=== PATIENT | male | born 1945 | race Caucasian/White ===

== ENCOUNTER 2019-02-16 11:47 | Inpatient (IN) ==
[2019-02-16] MEDS ORDERED: NS 1,000 ML IV ONE ×4 (11:54→16:45)
[2019-02-16] MEDS ORDERED: ROCEPHIN 1 GM in NS 50 ML IV ONE (11:55)
[2019-02-16 11:58] LABS: BLOOD TYPE ARTERIAL; HCO3-(ACT) 31.8 mmoll (20.0-26.0); METHB 1.3 % (0.0-1.5); O2(CT) 19.7 mL/dL (15.0-23.0); O2HB 94.2 % (95.0-99.0); PO2(98.6) 137 mmHg (60-100); SAMPLE BLOOD; SAO2 99.7 % (95.0-100.0); THB 14.7 g/dL (11.5-17.4)
[2019-02-16 12:14] LABS: HEMATOCRIT 46.1 % (42.0-52.0); HEMOGLOBIN 13.8 g/dL (14.0-18.0); RBC 4.77 XMIL (4.7-6.1); WBC 13.38 X1000 (4.8-10.8)
[2019-02-16 12:15] LABS: BASO# 0.01 X1000 (0.0-0.2); BASO% 0.1 % (0.0-0.8); IMM GRAN# 0.02 X1000 (0.0-0.04); IMM GRAN% 0.1 % (0.0-0.5); LYMPH# 0.21 X1000 (1.2-3.4); LYMPH% 1.6 % (20.5-51.1); MCH 28.9 PG (27-31); MCHC 29.9 g/dL (33-37); MCV 96.6 FL (81-99); MONO# 1.03 X1000 (0.11-0.59); MONO% 7.7 % (1.7-9.3); MPV 10.5 FL (7.4-10.4); NEUT# 12.11 X1000 (1.4-6.5); NEUT% 90.5 % (42.2-75.2); PLT 297 X1000 (130-400); RDW 14.7 % (11.5-14.5)
--- NOTE | 2019-02-16 12:16 | Diag Imaging Result Doc PS360 ---
EXAM: CHEST-PORTABLE 02/16/2019 HISTORY: SOB TECHNIQUE: Erect AP portable at 1212 COMMENT: There is a right pleural effusion which is slightly larger than on 09/03/2018. There is increased opacity generally in the right lower lung and midlung compared to the previous study. There is also some increased activity in the mid lung field on the left. The heart size and pulmonary vascularity are within normal limits. IMPRESSION: Bronchopneumonia with right pleural effusion. Electronically signed by Mahendra High 02/16/2019 12:14 PM
[2019-02-16] MEDS ORDERED: DUONEB (A & A) INH ONE (12:20)
[2019-02-16 12:30] LABS: ALLEN TEST YES; MODALITY COOL AEROSOL
[2019-02-16 12:31] LABS: PCO2(98.6) 140 mmHg (35-45); pH(98.6) 7.11 (7.35-7.45)
--- NOTE | 2019-02-16 12:49 | EKG Report ---
Test Performed on : 02/16/2019 11:51:45 AM Test Reason : AMS Blood Pressure : / mmHG Vent. Rate : 115 BPM Atrial Rate : 115 BPM P-R Int : 128 ms QRS Dur : 094 ms QT Int : 312 ms P-R-T Axes : 088 088 037 degrees QTc Int : [address] elevation, consider inferolateral injury or acute infarct ACUTE OH / STEMI Abnormal ECG When compared with ECG of 28-JAN-2014 08:20, Non-specific change in ST segment in Inferior leads Unconfirmed Result
--- NOTE | 2019-02-16 12:50 | EKG Report ---
Test Performed on : 02/16/2019 11:53:23 AM Test Reason : REPEAT ARTIFACT LAST EKG Blood Pressure : / mmHG Vent. Rate : 115 BPM Atrial Rate : 115 BPM P-R Int : 142 ms QRS Dur : 094 ms QT Int : 286 ms P-R-T Axes : 084 094 069 degrees QTc Int : 395 ms Sinus tachycardia. Rightward axis Pulmonary disease pattern Abnormal ECG When compared with ECG of 16-FEB-2019 11:51, (Unconfirmed) ST no longer elevated in Lateral leads Unconfirmed Result
[2019-02-16 12:52] LABS: INR 0.88; PROTIME 12.4 Seconds (11.0-16.0); PTT 30.3 Seconds (22.3-41.8)
[2019-02-16] MEDS ORDERED: LEVAQUIN 500 MG/D5W 500 MG/100 ML IVPB IV ONE (12:57)
[2019-02-16 13:18] LABS: LYMPHS 7 % (21-51); MONO 1 % (1-9); SEGS 92 % (42-75)
[2019-02-16 13:43] LABS: BE 4.8 mmoll (-3.0-3.0); BLOOD TYPE ARTERIAL; HCO3-(ACT) 28.5 mmoll (20.0-26.0); METHB 1.4 % (0.0-1.5); O2(CT) 17.1 mL/dL (15.0-23.0); PO2(98.6) 63 mmHg (60-100); SAMPLE BLOOD; SAO2 94.2 % (95.0-100.0); SRATE 25 BPM; THB 13.6 g/dL (11.5-17.4)
[2019-02-16 13:46] LABS: ALLEN TEST YES; MODALITY BI PAP; pH(98.6) 7.14 (7.35-7.45)
[2019-02-16 13:47] LABS: O2HB 89.2 % (95.0-99.0); PCO2(98.6) 111 mmHg (35-45)
[2019-02-16 13:56] LABS: AGAP 11; ALBUMIN 2.9 g/dL (3.5-5.0); ALKALINE PHOSPHATASE 81 U/L (32-122); BUN 37 mg/dL (8-22); CHLORIDE 98 mmol/L (98-107); CK PROFILE 40 U/L (24-204); COSMO 292; CREATININE 1.2 mg/dL (0.7-1.2); ESTIMATED GFR 59; GLUCOSE 143 mg/dL (70-104); GOT 14 U/L (10-34); GPT 7 U/L (10-44); POTASSIUM 5.2 mmol/L (3.5-5.1); SODIUM 141 mmol/L (136-145); TCO2 32 mmol/L (25-35); TOTAL BILIRUBIN < 0.15 mg/dL (0.20-1.00); TOTAL PROTEIN 6.1 g/dL (6.3-8.3)
--- NOTE | 2019-02-16 16:21 | PROVIDER DOCUMENTATION ---
This chart was entered by Chuck Brandon Scribe, acting as scribe for Luis A Calzada MD. HPI-General Adult - General Chief Complaint: Shortness of Breath Stated Complaint: AMS Time Seen by Provider: 02/16/19 11:49 Source: patient, EMS Unable to obtain history due to:: altered Allergies/Adverse Reactions: Patient Allergies Allergy/AdvReac Type Severity Reaction Status Date / Time iodine Allergy ANAPHYLAXIS Verified 01/28/14 08:58 Home Medications: Home Medication List Medication Instructions Recorded Confirmed Last Taken Type Gabapentin [Neurontin] 1,200 mg PO DAILY 01/28/14 01/28/14 01/27/14 08:00 History Metoprolol Succinate E.r. [Toprol 50 mg PO DAILY 01/28/14 01/28/14 01/27/14 09:00 History Xl] Cyanocobalamin [Vitamin B-12] 500 microgm PO DAILY #0 tablet 02/07/14 Unknown Rx Folic Acid 1 mg PO DAILY #0 tablet 02/07/14 Unknown Rx Lactobacillus Rhamnosus GG 1 each PO BID #0 capsule 02/07/14 Unknown Rx [Culturelle] Loperamide [Imodium] 2 mg PO Q6H PRN #0 capsule 02/07/14 Unknown Rx Nicotine Patch [Nicoderm Patch] 21 mg TD DAILY #0 patch.[id number] 02/07/14 Unknown Rx Thiamine [Vitamin B-1] 100 mg PO DAILY #0 tablet 02/07/14 Unknown Rx - History of Present Illness -Gen Adult Nature of Presenting Problems: 73 yom presents to the ed v/a EMS. EMS stated "pt hasn't been acting right for a week, pt has been leaning to right of his chair for a week stated to ems by family" pt "hasn't been breathing good all week" pt has bad bilateral legs PAD and has hx of COPD Onset/Duration: reports: 1 week ago ("stated not acting right by ems") Timing: reports: still present Review of Systems - Adult - REVIEW OF SYSTEMS - ADULT ROS:: unobtainable per condition Constitutional: reports: fatique, weight loss Eyes: reports: no symptoms reported Ears, Nose, Mouth & Throat: reports: no symptoms reported Cardiovascular: reports: no symptoms reported Respiratory: reports: chronic cough, cough, dyspnea on exertion, excessive sputum production, shortness of breath Gastrointestinal: reports: no symptoms reported Genitourinary: reports: no symptoms reported Musculoskeletal: reports: no symptoms reported Integumentary: reports: rash Neurological: reports: slurred speech Psychiatric: reports: no symptoms reported Endocrine: reports: no symptoms reported Hematologic/Lymphatic: reports: no symptoms reported Allergic/Immunologic: reports: no symptoms reported Past History - Adult - PAST MEDICAL HISTORY-ADULT Review of Records: reports: Old Records Reviewed, Nursing Assessment Review, Medications Reviewed, Social history reviewed & non-contributory. Major Childhood Illnesses: reports: denies history Cardiovascular: reports: CAD, HTN Respiratory: reports: COPD Gastrointestinal: reports: denies history Obstetrical/Gynecological: reports: denies history Genitourinary: reports: denies history Musculoskeletal: reports: denies history Neurological: reports: denies history Endocrine/Immune: reports: denies history Other Conditions: reports: denies history - IMMUNIZATION STATUS Childhood Immunizations: See Nurse Assessment Flu Vaccine: See Nurse Assessment - FAMILY HISTORY Family History: reviewed, not pertinent - SOCIAL HISTORY Living Situation: family Physical Exam-General - PHYSICAL EXAM-ADULT Initial Vital Signs Reviewed: Yes - CONSTITUTIONAL General Appearance: thin, other (unresponsive) - EYES Eyes: PERRL/EOMI - HEAD, EARS, NOSE, MOUTH & THROAT HENMT: moist mucous membranes - NECK Neck: non-tender, full range of motion - RESPIRATORY Respiratory: decreased breath sounds, crackles (diminished breath sounds), other (faint pulse) - CARDIOVASCULAR Cardiovascular: tachycardia (116) - GASTROINTESTINAL (ABDOMEN) Abdominal Exam: normal bowel sounds, non tender, soft - LYMPHATIC Lymphatic: no adenopathy - MUSCULOSKELETAL Extremity: other (PAD bilateral on both legs/ peripheral edema) - SKIN Integumentary: normal color, normal turgor, warm/dry, other (sore on top of left lower leg was wrapped up on arrival) - NEUROLOGIC Neurologic: other (veberally unresponsive) - PSYCHIATRIC Psych/Mental Status: other (vebarlly unresponsive) Progress - PLAN OF CARE/RESULTS Progress/Plan/Lab Results: Vital Signs - 8 hr 02/16/19 11:49 Temperature 97.7 F Pulse Rate 116 H Respiratory Rate 25 H Blood Pressure 145/069 O2 Sat by Pulse Oximetry 99 Orders Category Date Time Status Cardiac Monitoring DIRECTED Care 02/16/19 11:53 Active IV Insertion ORDERED Care 02/16/19 11:53 Active Notify MD of + Sepsis Screen NOW Care 02/16/19 11:53 Active Notify Physician As Ordered Care 02/16/19 11:53 Active CHEST-PORTABLE [RAD] Stat Exams 02/16/19 11:52 Ordered ABG [RESP] Routine Lab 02/16/19 11:54 Ordered ABG [RESP] Routine Lab 02/16/19 11:55 Ordered BLOOD CULTURE [BLDCUL] Stat Lab 02/16/19 12:00 Ordered CBC WITH DIFF [HEME] Stat Lab 02/16/19 12:00 Ordered CK PROFILE [SP CHEM] Stat Lab 02/16/19 12:00 Ordered COMPREHENSIVE METABOLIC PANEL [CHEM] Stat Lab 02/16/19 12:00 Ordered LACTATE, PLASMA [CHEM] Q3H Lab 02/16/19 12:00 Ordered LACTATE, PLASMA [CHEM] Q3H Lab 02/16/19 15:00 Uncollected LACTATE, PLASMA [CHEM] Q3H Lab 02/16/19 18:00 Uncollected PROTIME WITH INR [COAG] Stat Lab 02/16/19 12:00 Ordered PTT [COAG] Stat Lab 02/16/19 12:00 Ordered TROPONIN T Stat Lab 02/16/19 12:[address] W/POSS RFLX CULT [URINALYSIS] Stat Lab 02/16/19 11:53 Uncollected 0.9% Sodium Chloride Inj [Ns] 1,000 ml Med 02/16/19 11:54 Active IV 999 mls/hr CefTRIAXONE [Rocephin] 1 gm Med 02/16/19 11:55 Active 0.9% Sodium Chloride Inj [Ns] 50 ml IV NOW BIPAP Stat Oth 02/16/19 11:54 Active Oxygen Device Stat Oth 02/16/19 11:53 Active Result Diagrams: 02/16/19 11:50 02/16/19 13:30 - REASSESSMENT Reassessment #1 Time Reassessed: 13:27 (pt stated to Elsi feeling better ) Status: improving Reassessment #2 Time Reassessed: 14:36 (pt is responding some verbally) Status: improving - EKG 1 Time of EKG reading by physician:: 11:53 EKG Read and Signed by:: Luis A Calzada EKG Interpretation (*Must complete 3 of following elements*): Abnormal Rate: 115 Rhythm: Sinus tachycardia [place]: right (rightward axis) QRS: normal SD Interval: normal ST Wave: normal Comments: Pulmonary disease pattern - XRAY 1 XRAY Study: Chest Impression: See EMR Report (EXAM: CHEST-PORTABLE 02/16/2019 HISTORY: SOB TECHNIQUE: Erect AP portable at 1212 COMMENT: There is a right pleural effusion which is slightly larger than on 09/03/2018. There is increased opacity generally in the right lower lung and midlung compared to the previous study. There is also some increased activity in the mid lung field on the left. The heart size and pulmonary vascularity are within normal limits. IMPRESSION: Bronchopneumonia with right pleural effusion. Electronically signed by Mahendra High 02/16/2019 12:14 PM 02/16/19 1214 Interpreting Physician: Mahendra High MD Dictated Date/Time: 02/16/19 1213 cc: Deysi Mckeon; None,PCP) - CONSULTS/PCP/HOSPITALIST Notification #1 *Consult/PCP/Hospitalist*: upstairs Time Discussed: 16:00 (trying find bed for pt ) #2 Consult: on phone with house suit Time Discussed: 16:12 (bed for pt) Departure - Departure Date of Disposition Decision: 02/16/19 Time of Disposition Decision: 16:19 DIAGNOSIS: COPD (chronic obstructive pulmonary disease), Pneumonia, Ischemic heart disease, Hypercapnia Disposition: ADMITTED INPATIENT 09 Certified Medical Emergency: Emergent Condition: Stable Referrals and Follow-Ups: None,PCP [Primary Care Provider] - Luis A Calzada MD [Emergency Provider] - - Critical Care Note This patient required my direct & personal management of CC.: No Total Time (mins): 45 Critical Care Statement: This patient required my direct personal management to treat or rule out processes, the absence of which, could potentiallly result in sudden, clinically significant life or limb threatening deterioration. Attestation - Physician/ STARLA Attestation Patient care was provided by Advanced Practice Provider:: No The physician spent face to face time with patient:: Yes Advanced Practice Provider documentation review:: Supervising physician onsite and consulted in the evaluation and care of this patient. The physician did have a face to face encounter with the patient. This chart was documented by the indicated scribe, (Chuck Brandon, Scribe) and accurately reflects the services I performed and decisions made by me, Luis A Calzada MD, as attested by the provider's signature.
[2019-02-16 16:53] LABS: BILIRUBIN URINE NEGATIVE (NEGATIVE); BLOOD URINE 4+ (NEGATIVE); CLARITY VERY CLOUDY (CLEAR); COLOR YELLOW; GLUCOSE URINE NEGATIVE (NEGATIVE); KETONE URINE TRACE mg/dL (NEGATIVE); LEUKOCYTES URINE 2+ (NEGATIVE); NITRITE URINE NEGATIVE (NEGATIVE); PROTEIN URINE 2+(100 mg/dL) mg/dL (NEGATIVE); UROBILINOGEN URINE NORMAL
[2019-02-16 17:02] LABS: URINE SOURCE CATH
[2019-02-16 17:03] LABS: URINE BACTERIA 4+ /HFP; URINE CAST NONE SEEN /LPF; URINE CRYSTAL NONE SEEN /HPF; URINE EPITHELIAL CELLS >10 /HPF (<10); URINE RBC TNTC /HPF (<10); URINE YEAST NONE SEEN /HPF
[2019-02-16 17:56] LABS: BE 6.4 mmoll (-3.0-3.0); BLOOD TYPE ARTERIAL; HCO3-(ACT) 29.8 mmoll (20.0-26.0); METHB 1.1 % (0.0-1.5); O2(CT) 17.1 mL/dL (15.0-23.0); PO2(98.6) 90 mmHg (60-100); SAMPLE BLOOD; SAO2 98.6 % (95.0-100.0); SRATE 25 BPM; THB 12.9 g/dL (11.5-17.4)
[2019-02-16 17:58] LABS: ALLEN TEST YES; MODALITY BI PAP; PCO2(98.6) 103 mmHg (35-45); pH(98.6) 7.18 (7.35-7.45)
[2019-02-16] MEDS ORDERED: DUONEB (A & A) INH SCH (19:30)
[2019-02-16] MEDS ORDERED: DUONEB (A & A) INH PRN (22:34)
[2019-02-16] MEDS ORDERED: TYLENOL PR PRN (22:37)
[2019-02-16] MEDS ORDERED: ROBITUSSIN PO PRN (22:45)
[2019-02-16] MEDS: DUONEB (A & A) INH SCH (22:46)
[2019-02-16] MEDS: NS 1,000 ML IV SCH (23:36)
[2019-02-16] MEDS: ZOFRAN IV PRN (23:36)
[2019-02-16] MEDS: NORCO-10 PO PRN (23:44)
[2019-02-17] MEDS: DUONEB (A & A) INH SCH ×6 (03:01→22:43)
[2019-02-17 06:02] LABS: BLOOD TYPE ARTERIAL; HCO3-(ACT) 27.5 mmoll (20.0-26.0); PO2(98.6) 92 mmHg (60-100); SAMPLE BLOOD
[2019-02-17 06:03] LABS: BE 3.4 mmoll (-3.0-3.0); METHB 1.4 % (0.0-1.5); O2(CT) 18.2 mL/dL (15.0-23.0); O2HB 93.8 % (95.0-99.0); SAO2 98.4 % (95.0-100.0); THB 13.7 g/dL (11.5-17.4)
[2019-02-17 06:05] LABS: ALLEN TEST NO; MODALITY BI PAP; PCO2(98.6) 148 mmHg (35-45); pH(98.6) 7.03 (7.35-7.45)
[2019-02-17 06:45] LABS: AGAP 6; BUN 38 mg/dL (8-22); CHLORIDE 101 mmol/L (98-107); COSMO 295; CREATININE 1.1 mg/dL (0.7-1.2); ESTIMATED GFR > 60; GLUCOSE 148 mg/dL (70-104); PHOSPHORUS 5.6 mg/dL (2.7-4.5); POTASSIUM 5.7 mmol/L (3.5-5.1); SODIUM 142 mmol/L (136-145); TCO2 35 mmol/L (25-35)
[2019-02-17 06:58] LABS: HEMATOCRIT 43.6 % (42.0-52.0); HEMOGLOBIN 12.6 g/dL (14.0-18.0); IMM GRAN# 0.02 X1000 (0.0-0.04); IMM GRAN% 0.2 % (0.0-0.5); LYMPH# 0.27 X1000 (1.2-3.4); LYMPH% 2.1 % (20.5-51.1); MCH 28.5 PG (27-31); MCHC 28.9 g/dL (33-37); MCV 98.6 FL (81-99); MONO# 1.55 X1000 (0.11-0.59); MONO% 12.1 % (1.7-9.3); MPV 10.1 FL (7.4-10.4); NEUT# 10.99 X1000 (1.4-6.5); NEUT% 85.6 % (42.2-75.2); PLT 297 X1000 (130-400); RBC 4.42 XMIL (4.7-6.1); RDW 14.7 % (11.5-14.5); WBC 12.83 X1000 (4.8-10.8)
[2019-02-17] MEDS: NS 1,000 ML IV SCH ×3 (07:31→20:39)
--- NOTE | 2019-02-17 07:34 | Diag Imaging Result Doc PS360 ---
EXAM: CHEST-PORTABLE HISTORY: PNA/COPD follow up TECHNIQUE: Chest single view COMPARISON: 02/16/2019 FINDINGS: The lungs are hyperexpanded. There are infiltrates in both mid lungs and in the right base. No cardiomegaly. Small effusions. IMPRESSION: No interval improvement. Electronically signed by Piero Sweeney 02/17/2019 7:31 AM
[2019-02-17 08:20] LABS: BANDS 5 % (0-1); LYMPHS 6 % (21-51); MONO 10 % (1-9); SEGS 79 % (42-75)
--- NOTE | 2019-02-17 08:24 | HISTORY AND PHYSICAL ---
HISTORY OF PRESENT ILLNESS: This is a 73-year-old patient from the office who has had a week long illness superimposed on his chronic COPD and chronic cough that consisted of generalized weakness. He had been sitting in his chair for an extended period of time, not breathing well all week, with a history of COPD. He presented to the emergency room, and when he got there, his temperature was 97.7, pulse was 116, respiratory rate was 25, blood pressure 145/69 on a nonrebreather mask, flow rate at 15. We did a chest x-ray which showed hyperexpanded COPD changes and pneumonic appearance to the right lower lobe and perihilar regions, some blunting of the costophrenic angles. His laboratory data showed white count 13,380, hematocrit was 46.1, platelet count was 297. He had a left shift, 90% neutrophils, 1.6% lymphocytes. His initial blood gases showed pH of 7.11, pCO2 of 140, pO2 of 137, carboxyhemoglobin was 4.2. He is on 50% FiO2. He was subsequently placed on BiPAP, and his gases improved to 7.18 at 5:35, pCO2 of 130, pO2 of 90. He went from unresponsive to talking and subsequently to talking and making sense and drinking and sitting up in bed. He was transferred up to the floor and placed in the ICU. His other labs include his electrolytes with sodium 141, potassium 5.2, chloride 98, CO2 was 32, BUN was 37, creatinine 1.2, GFR was 59, glucose 143, calcium was 8. Liver function tests were normal. Total protein 6.1, albumin 2.9, lactate was 2.3. Troponin was 0.029. CK was 40 and 43. He had a urinalysis obtained after trying to attempt Brooks catheter placement. There was some resistance. He developed some hematuria, and urine reflected that with the too numerous to count RBCs, 2+ white cells, 10 to 20 WBCs, greater than 10 epithelial cells, 4+ bacteria, negative nitrites, 4+ blood and protein. The patient was cultured, urine and blood cultures, for pneumonia with sepsis and COPD and sent to the unit. ALLERGIES: He is allergic to iodine. MEDICATIONS: At home, he seems to be taking DuoNebs, atorvastatin for his PAD that has been a problem for him for some years. He has an ulceration, probably venous, though, on his left lower carr. He is on hydrocodone for chronic neck pain. We think that he is taking Neurontin, not certain, and we will clarify that with his . PAST MEDICAL HISTORY: He has longstanding COPD, he has PAD, and he is followed by creative developer in [place]. REVIEW OF SYSTEMS: Unobtainable. But per family, he has been coughing and less responsive than he had previously. PHYSICAL EXAMINATION: VITAL SIGNS: At the time of his admission, his temperature was 97.7, pulse 116, respiratory rate was 25, blood pressure 145/69. GENERAL: He was unresponsive. He was breathing. HEENT: His head was normocephalic with male pattern balding, some temporal wasting. Nares patent. Oropharynx negative. NECK: Midline trachea. No thyromegaly. CHEST: Increased AP diameter bilaterally. Diminished breath sounds throughout. Questions bronchovesicular breath sounds on the right side of his chest. ABDOMEN: Scaphoid with no hepatosplenomegaly. No CVA tenderness. EXTREMITIES: Thin, poorly perfused. Pulses were marginally felt in one foot. He has some skin changes in his left carr, a small ulceration and some skin peeling. ADMITTING DIAGNOSES: 1. Chronic obstructive pulmonary disease. 2. Pneumonia. 3. Hypercapnia and respiratory failure. He was admitted so that we can adjust his CPAP and see if we can get better response than he has currently. If not, we will probably need to send him across town to Pulmonary. cc: Luis A Calzada MD
[2019-02-17 08:25] LABS: BE 3.6 mmoll (-3.0-3.0); BLOOD TYPE ARTERIAL; HCO3-(ACT) 27.5 mmoll (20.0-26.0); METHB 0.6 % (0.0-1.5); O2(CT) 16.4 mL/dL (15.0-23.0); PO2(98.6) 50 mmHg (60-100); SAMPLE BLOOD; SAO2 93.2 % (95.0-100.0); THB 13.2 g/dL (11.5-17.4)
[2019-02-17 08:29] LABS: PCO2(98.6) 103 mmHg (35-45); pH(98.6) 7.15 (7.35-7.45)
[2019-02-17 08:30] LABS: ALLEN TEST YES; MODALITY BI PAP; O2HB 88.7 % (95.0-99.0)
[2019-02-17] MEDS ORDERED: NEURONTIN PO SCH (09:00)
[2019-02-17] MEDS: ROCEPHIN 1 GM in NS 50 ML IV SCH (12:30)
[2019-02-17] MEDS: SANTYL OINT TOP SCH (12:35)
[2019-02-17] MEDS: LEVAQUIN 500 MG/D5W 500 MG/100 ML IVPB IV SCH (13:06)
[2019-02-17 13:31] LABS: BE 4.7 mmoll (-3.0-3.0); BLOOD TYPE ARTERIAL; HCO3-(ACT) 28.4 mmoll (20.0-26.0); METHB 1.3 % (0.0-1.5); O2HB 90.8 % (95.0-99.0); PO2(98.6) 58 mmHg (60-100); SAMPLE BLOOD; SAO2 95.2 % (95.0-100.0); THB 12.5 g/dL (11.5-17.4)
[2019-02-17 13:34] LABS: PCO2(98.6) 91 mmHg (35-45)
[2019-02-17 13:35] LABS: MODALITY BI PAP
[2019-02-17 13:36] LABS: ALLEN TEST YES
[2019-02-17 13:54] LABS: BASO# 0.01 X1000 (0.0-0.2); BASO% 0.1 % (0.0-0.8); EOS# 0.01 X1000 (0.0-0.7); EOS% 0.1 % (0.0-10.0); HEMATOCRIT 42.3 % (42.0-52.0); HEMOGLOBIN 12.1 g/dL (14.0-18.0); IMM GRAN# 0.02 X1000 (0.0-0.04); IMM GRAN% 0.2 % (0.0-0.5); LYMPH# 0.46 X1000 (1.2-3.4); MCH 28.6 PG (27-31); MCHC 28.6 g/dL (33-37); MONO% 11.9 % (1.7-9.3); NEUT# 7.62 X1000 (1.4-6.5); NEUT% 82.7 % (42.2-75.2); PLT 245 X1000 (130-400); RBC 4.23 XMIL (4.7-6.1); RDW 14.5 % (11.5-14.5); WBC 9.22 X1000 (4.8-10.8)
[2019-02-17 14:52] LABS: AGAP 7; ALBUMIN 2.7 g/dL (3.5-5.0); ALKALINE PHOSPHATASE 88 U/L (32-122); BUN 37 mg/dL (8-22); CALCIUM 7.6 mg/dL (8.8-10.2); CHLORIDE 101 mmol/L (98-107); COSMO 293; CREATININE 1.2 mg/dL (0.7-1.2); ESTIMATED GFR 59; GLUCOSE 148 mg/dL (70-104); GOT 13 U/L (10-34); GPT 8 U/L (10-44); POTASSIUM 4.7 mmol/L (3.5-5.1); SODIUM 141 mmol/L (136-145); TCO2 33 mmol/L (25-35); TOTAL BILIRUBIN < 0.15 mg/dL (0.20-1.00); TOTAL PROTEIN 5.5 g/dL (6.3-8.3)
[2019-02-17] MEDS: NICODERM PATCH TD SCH (18:03)
[2019-02-17 19:35] LABS: BE 5.5 mmoll (-3.0-3.0); BLOOD TYPE ARTERIAL; O2(CT) 14.7 mL/dL (15.0-23.0); PO2(98.6) 53 mmHg (60-100); SAMPLE BLOOD; SAO2 93.3 % (95.0-100.0); THB 11.7 g/dL (11.5-17.4); pH(98.6) 7.25 (7.35-7.45)
[2019-02-17 19:37] LABS: PCO2(98.6) 80 mmHg (35-45)
[2019-02-17 19:38] LABS: ALLEN TEST NO; MODALITY BI PAP; O2HB 89.4 % (95.0-99.0)
[2019-02-18] MEDS: TYLENOL PO PRN ×3 (01:27→23:25)
[2019-02-18] MEDS: NS 1,000 ML IV SCH ×4 (02:58→21:47)
[2019-02-18] MEDS: DUONEB (A & A) INH SCH ×6 (03:09→23:07)
[2019-02-18 05:42] LABS: BE 7.5 mmoll (-3.0-3.0); BLOOD TYPE ARTERIAL; HCO3-(ACT) 30.7 mmoll (20.0-26.0); METHB 1.2 % (0.0-1.5); O2(CT) 14.3 mL/dL (15.0-23.0); O2HB 93.4 % (95.0-99.0); PO2(98.6) 73 mmHg (60-100); SAMPLE BLOOD; SAO2 97.5 % (95.0-100.0); THB 10.8 g/dL (11.5-17.4); pH(98.6) 7.33 (7.35-7.45)
[2019-02-18 06:42] LABS: ALLEN TEST NO; PCO2(98.6) 67 mmHg (35-45)
[2019-02-18 07:15] LABS: AGAP 7; ALBUMIN 2.3 g/dL (3.5-5.0); ALKALINE PHOSPHATASE 77 U/L (32-122); BUN 30 mg/dL (8-22); CHLORIDE 100 mmol/L (98-107); COSMO 282; ESTIMATED GFR > 60; GLUCOSE 101 mg/dL (70-104); GOT 13 U/L (10-34); GPT 7 U/L (10-44); POTASSIUM 4.3 mmol/L (3.5-5.1); SODIUM 138 mmol/L (136-145); TCO2 31 mmol/L (25-35)
[2019-02-18 07:49] LABS: BASO# 0.01 X1000 (0.0-0.2); BASO% 0.1 % (0.0-0.8); EOS# 0.06 X1000 (0.0-0.7); EOS% 0.7 % (0.0-10.0); HEMATOCRIT 34.1 % (42.0-52.0); HEMOGLOBIN 9.9 g/dL (14.0-18.0); IMM GRAN# 0.01 X1000 (0.0-0.04); IMM GRAN% 0.1 % (0.0-0.5); LYMPH# 0.51 X1000 (1.2-3.4); LYMPH% 6.2 % (20.5-51.1); MCH 28.1 PG (27-31); MCV 96.9 FL (81-99); MONO# 1.01 X1000 (0.11-0.59); MONO% 12.3 % (1.7-9.3); MPV 9.8 FL (7.4-10.4); NEUT# 6.58 X1000 (1.4-6.5); NEUT% 80.6 % (42.2-75.2); PLT 219 X1000 (130-400); RBC 3.52 XMIL (4.7-6.1); RDW 14.4 % (11.5-14.5); WBC 8.18 X1000 (4.8-10.8)
--- NOTE | 2019-02-18 08:43 | PROGRESS NOTE ---
DATE: 02/18/2019 Mr. Mai looks much better today. He has currently a gas pH of 7.33, PCO2 67, PO2 73 on BiPAP. His electrolytes are normal. BUN is 30, creatinine 1, GFR greater than 60. Calcium is 8, albumin is 2.3. His CBC, white count is 8,180, hematocrit is 34, platelet count is 219,000. Overall he looks way better than he did yesterday. No edema. I's and O's were basically equal. We will continue IV antibiotics. Continue to try to wean him off his assisting devices. cc: Luis A Calzada MD
[2019-02-18] MEDS: SANTYL OINT TOP SCH (08:46)
[2019-02-18] MEDS: NICODERM PATCH TD SCH (08:46)
[2019-02-18] MEDS: NEURONTIN PO SCH (08:46)
[2019-02-18 09:37] LABS: MODALITY VENTIMASK
[2019-02-18 10:08] LABS: BE 6.8 mmoll (-3.0-3.0); BLOOD TYPE ARTERIAL; HCO3-(ACT) 30.1 mmoll (20.0-26.0); METHB 1.4 % (0.0-1.5); O2(CT) 13.8 mL/dL (15.0-23.0); O2HB 91.3 % (95.0-99.0); PO2(98.6) 58 mmHg (60-100); SAMPLE BLOOD; SAO2 95.8 % (95.0-100.0); THB 10.7 g/dL (11.5-17.4); pH(98.6) 7.37 (7.35-7.45)
[2019-02-18 10:12] LABS: ALLEN TEST YES; MODALITY HIGH FLOW NASAL CAN; PCO2(98.6) 58 mmHg (35-45)
[2019-02-18] MEDS: LEVAQUIN 500 MG/D5W 500 MG/100 ML IVPB IV SCH (12:20)
[2019-02-18] MEDS: ROCEPHIN 1 GM in NS 50 ML IV SCH (12:20)
[2019-02-18] MEDS ORDERED: NS 1,000 ML IV ONE (16:20)
[2019-02-19] MEDS: DUONEB (A & A) INH SCH ×6 (03:08→23:35)
[2019-02-19] MEDS: NS 1,000 ML IV SCH ×4 (04:11→22:50)
[2019-02-19 06:15] LABS: BLOOD TYPE ARTERIAL; SAMPLE BLOOD
[2019-02-19 06:16] LABS: BE 3.6 mmoll (-3.0-3.0); HCO3-(ACT) 27.5 mmoll (20.0-26.0); METHB 1.4 % (0.0-1.5); O2(CT) 20.5 mL/dL (15.0-23.0); O2HB 91.8 % (95.0-99.0); PO2(98.6) 70 mmHg (60-100); THB 15.9 g/dL (11.5-17.4); pH(98.6) 7.32 (7.35-7.45)
[2019-02-19 06:18] LABS: ALLEN TEST NO; MODALITY HIGH FLOW NASAL CAN; PCO2(98.6) 62 mmHg (35-45)
[2019-02-19 06:31] LABS: EOS# 0.05 X1000 (0.0-0.7); EOS% 0.6 % (0.0-10.0); HEMATOCRIT 36.1 % (42.0-52.0); HEMOGLOBIN 10.6 g/dL (14.0-18.0); IMM GRAN# 0.01 X1000 (0.0-0.04); IMM GRAN% 0.1 % (0.0-0.5); LYMPH# 0.38 X1000 (1.2-3.4); LYMPH% 4.8 % (20.5-51.1); MCH 27.8 PG (27-31); MCHC 29.4 g/dL (33-37); MCV 94.8 FL (81-99); MONO% 11.3 % (1.7-9.3); MPV 9.8 FL (7.4-10.4); NEUT% 83.2 % (42.2-75.2); PLT 224 X1000 (130-400); RBC 3.81 XMIL (4.7-6.1); RDW 14.4 % (11.5-14.5); WBC 7.94 X1000 (4.8-10.8)
[2019-02-19 06:52] LABS: AGAP 8; ALBUMIN 2.2 g/dL (3.5-5.0); ALKALINE PHOSPHATASE 74 U/L (32-122); BUN 20 mg/dL (8-22); CALCIUM 7.9 mg/dL (8.8-10.2); CHLORIDE 105 mmol/L (98-107); COSMO 287; CREATININE 0.7 mg/dL (0.7-1.2); ESTIMATED GFR > 60; GLUCOSE 93 mg/dL (70-104); GOT 12 U/L (10-34); GPT 6 U/L (10-44); POTASSIUM 3.1 mmol/L (3.5-5.1); SODIUM 143 mmol/L (136-145); TCO2 30 mmol/L (25-35); TOTAL PROTEIN 4.9 g/dL (6.3-8.3)
--- NOTE | 2019-02-19 09:08 | PROGRESS NOTE ---
DATE: 02/19/2019 He had a temperature yesterday in the evening. His current temperature is 96. Pulse is 80, respiratory rate 22, BP 96/42. He has put out 400 mL of fluid already today. His cultures, blood and urine culture are negative. Chest x-ray will be repeated this morning. He is tolerating the high-flow. He is a little bit hypokalemic, we are going to replace that, checking the magnesium, and repeating a chest x-ray. cc: Luis A Calzada MD
--- NOTE | 2019-02-19 09:34 | Diag Imaging Result Doc PS360 ---
EXAM: CHEST-PORTABLE HISTORY: pneumonia TECHNIQUE: Single view of the chest was performed portably. COMPARISON: 02/17/2019 FINDINGS: The cardiomediastinal silhouette is within normal limits. There is increasing alveolar consolidation within the right upper lobe and left lower lobe. Increased interstitial infiltrates are noted throughout both lungs. There are increasing bilateral effusions. Findings compatible with worsening bilateral pneumonia/edema. There are postsurgical changes lower cervical spine. IMPRESSION: Increasing bilateral alveolar and interstitial infiltrates and bilateral effusions compatible with worsening pneumonia and/or superimposed diffuse pulmonary edema. Electronically signed by Heidi Tapia 02/19/2019 9:32 AM
[2019-02-19] MEDS: NEURONTIN PO SCH (09:39)
[2019-02-19] MEDS: KLOR-CON PO SCH ×2 (09:39→20:08)
[2019-02-19] MEDS: NICODERM PATCH TD SCH (09:39)
[2019-02-19] MEDS: SANTYL OINT TOP SCH (09:40)
[2019-02-19] MEDS: ROCEPHIN 1 GM in NS 50 ML IV SCH (10:59)
[2019-02-19] MEDS: LEVAQUIN 500 MG/D5W 500 MG/100 ML IVPB IV SCH (12:31)
[2019-02-19] MEDS: NORCO-10 PO PRN ×2 (15:29→21:31)
[2019-02-20] MEDS: DUONEB (A & A) INH SCH ×6 (04:25→22:47)
[2019-02-20 04:51] LABS: BE 12.9 mmoll (-3.0-3.0); BLOOD TYPE ARTERIAL; HCO3-(ACT) 34.8 mmoll (20.0-26.0); METHB 1.2 % (0.0-1.5); O2(CT) 14.6 mL/dL (15.0-23.0); PO2(98.6) 52 mmHg (60-100); SAMPLE BLOOD; SAO2 91.8 % (95.0-100.0); THB 11.8 g/dL (11.5-17.4); pH(98.6) 7.38 (7.35-7.45)
[2019-02-20 05:39] LABS: PCO2(98.6) 69 mmHg (35-45)
[2019-02-20 05:40] LABS: ALLEN TEST YES; MODALITY HIGH FLOW NASAL CAN; O2HB 87.9 % (95.0-99.0)
[2019-02-20] MEDS: NS 1,000 ML IV SCH ×2 (05:58→12:21)
[2019-02-20 06:46] LABS: BASO# 0.01 X1000 (0.0-0.2); BASO% 0.1 % (0.0-0.8); EOS# 0.08 X1000 (0.0-0.7); EOS% 0.9 % (0.0-10.0); HEMATOCRIT 38.2 % (42.0-52.0); HEMOGLOBIN 11.5 g/dL (14.0-18.0); IMM GRAN# 0.02 X1000 (0.0-0.04); IMM GRAN% 0.2 % (0.0-0.5); LYMPH# 0.51 X1000 (1.2-3.4); LYMPH% 5.7 % (20.5-51.1); MCHC 30.1 g/dL (33-37); MCV 92.9 FL (81-99); MONO# 1.09 X1000 (0.11-0.59); MONO% 12.1 % (1.7-9.3); MPV 9.5 FL (7.4-10.4); NEUT# 7.31 X1000 (1.4-6.5); PLT 248 X1000 (130-400); RBC 4.11 XMIL (4.7-6.1); RDW 14.1 % (11.5-14.5); WBC 9.02 X1000 (4.8-10.8)
[2019-02-20 07:32] LABS: AGAP 7; ALBUMIN 2.1 g/dL (3.5-5.0); ALKALINE PHOSPHATASE 65 U/L (32-122); BUN 9 mg/dL (8-22); CALCIUM 7.5 mg/dL (8.8-10.2); CHLORIDE 100 mmol/L (98-107); COSMO 283; CREATININE 0.6 mg/dL (0.7-1.2); ESTIMATED GFR > 60; GLUCOSE 111 mg/dL (70-104); GOT 14 U/L (10-34); GPT 6 U/L (10-44); POTASSIUM 2.9 mmol/L (3.5-5.1); SODIUM 142 mmol/L (136-145); TCO2 36 mmol/L (25-35); TOTAL PROTEIN 5.2 g/dL (6.3-8.3)
[2019-02-20] MEDS: NICODERM PATCH TD SCH (08:23)
[2019-02-20] MEDS: NEURONTIN PO SCH (08:24)
[2019-02-20] MEDS: KLOR-CON PO SCH ×2 (08:24→20:16)
[2019-02-20] MEDS: SANTYL OINT TOP SCH (08:28)
[2019-02-20] MEDS ORDERED: KLOR-CON PO ONE (09:16)
--- NOTE | 2019-02-20 10:02 | Diag Imaging Result Doc PS360 ---
EXAM: CHEST-PORTABLE INDICATION: pna/ follow up TECHNIQUE: One view COMPARISON: 02/19/2019 FINDINGS: Patchy airspace consolidations throughout the right lung and at the left mid and lower lung zone are approximately stable given slight differences in positioning. No new consolidation is identified. The small right pleural effusion is stable. The small left pleural effusion may be slightly larger. Cardiac silhouette is stable. IMPRESSION: Slight increase in the left effusion. Essentially stable chest, otherwise. Electronically signed by Raul Martinez 02/20/2019 9:59 AM
[2019-02-20] MEDS: ROCEPHIN 1 GM in NS 50 ML IV SCH (12:20)
[2019-02-20] MEDS: LEVAQUIN PO SCH (12:22)
[2019-02-20] MEDS ORDERED: ATIVAN PO ONE (15:23)
[2019-02-20] MEDS ORDERED: ALBUMIN 25% IV ONE (15:34)
[2019-02-20 15:44] LABS: BE 15.9 mmoll (-3.0-3.0); BLOOD TYPE ARTERIAL; HCO3-(ACT) 37.2 mmoll (20.0-26.0); METHB 1.7 % (0.0-1.5); O2(CT) 17.1 mL/dL (15.0-23.0); O2HB 91.9 % (95.0-99.0); PO2(98.6) 70 mmHg (60-100); SAMPLE BLOOD; SAO2 96.3 % (95.0-100.0); THB 13.2 g/dL (11.5-17.4); pH(98.6) 7.37 (7.35-7.45)
[2019-02-20 15:47] LABS: MODALITY HIGH FLOW NASAL CAN
[2019-02-20 15:48] LABS: ALLEN TEST YES; PCO2(98.6) 78 mmHg (35-45)
--- NOTE | 2019-02-20 15:52 | PROGRESS NOTE ---
DATE: 02/20/2019 Has severe COPD, PAD, and bilateral pneumonia. He is having a bit of a difficulty now getting air in. He is on high-flow O2 blow by. His CBC was normal. Total protein was 5.2, albumin was 2.1, sodium is 142, potassium was 2.9, serum CO2 was 36, chloride was 100, BUN 9, creatinine 0.6. We are going to give him some albumin supplement, Ativan, he is very anxious. I do not see any significant amount of fluids. He was very fluid negative yesterday so we are going to make some adjustments. Culture data so far has all been negative. cc: Luis A Calzada MD
[2019-02-20] MEDS: TYLENOL PO PRN ×2 (17:51→17:59)
[2019-02-20] MEDS: NORCO-10 PO PRN (20:16)
[2019-02-21] MEDS: NS 1,000 ML IV SCH ×2 (01:52→15:59)
[2019-02-21] MEDS: DUONEB (A & A) INH SCH ×6 (03:36→23:07)
[2019-02-21] MEDS: NORCO-10 PO PRN ×2 (03:36→20:15)
[2019-02-21 06:05] LABS: BASO# 0.02 X1000 (0.0-0.2); BASO% 0.2 % (0.0-0.8); EOS% 2.4 % (0.0-10.0); HEMATOCRIT 36.4 % (42.0-52.0); HEMOGLOBIN 10.7 g/dL (14.0-18.0); IMM GRAN# 0.04 X1000 (0.0-0.04); IMM GRAN% 0.5 % (0.0-0.5); LYMPH# 0.54 X1000 (1.2-3.4); LYMPH% 6.5 % (20.5-51.1); MCH 27.5 PG (27-31); MCHC 29.4 g/dL (33-37); MCV 93.6 FL (81-99); MONO# 0.87 X1000 (0.11-0.59); MONO% 10.5 % (1.7-9.3); NEUT# 6.59 X1000 (1.4-6.5); NEUT% 79.9 % (42.2-75.2); PLT 252 X1000 (130-400); RBC 3.89 XMIL (4.7-6.1); WBC 8.26 X1000 (4.8-10.8)
[2019-02-21 06:27] LABS: AGAP 7; ALBUMIN 2.4 g/dL (3.5-5.0); ALKALINE PHOSPHATASE 57 U/L (32-122); BUN 6 mg/dL (8-22); CALCIUM 7.9 mg/dL (8.8-10.2); CHLORIDE 97 mmol/L (98-107); COSMO 285; CREATININE 0.6 mg/dL (0.7-1.2); ESTIMATED GFR > 60; GLUCOSE 110 mg/dL (70-104); GOT 12 U/L (10-34); GPT 5 U/L (10-44); SODIUM 144 mmol/L (136-145); TCO2 40 mmol/L (25-35); TOTAL PROTEIN 5.3 g/dL (6.3-8.3)
[2019-02-21 08:03] LABS: BE 20.3 mmoll (-3.0-3.0); BLOOD TYPE ARTERIAL; HCO3-(ACT) 40.7 mmoll (20.0-26.0); O2(CT) 15.3 mL/dL (15.0-23.0); O2HB 93.5 % (95.0-99.0); PO2(98.6) 72 mmHg (60-100); SAMPLE BLOOD; SAO2 97.4 % (95.0-100.0); THB 11.6 g/dL (11.5-17.4); pH(98.6) 7.42 (7.35-7.45)
[2019-02-21 08:09] LABS: MODALITY HIGH FLOW NASAL CAN; PCO2(98.6) 75 mmHg (35-45)
[2019-02-21 08:10] LABS: ALLEN TEST YES
[2019-02-21] MEDS: KLOR-CON PO SCH ×2 (08:34→20:15)
[2019-02-21] MEDS: NEURONTIN PO SCH (08:34)
[2019-02-21] MEDS: LEVAQUIN PO SCH (08:34)
[2019-02-21] MEDS: NICODERM PATCH TD SCH (08:35)
--- NOTE | 2019-02-21 10:36 | PROGRESS NOTE ---
DATE: 02/21/2019 Mr. Mai still remains in the Intensive Care Unit on the high flow Blow-By, maintaining a pH of 7.42, pCO2 is 75, pO2 is 72 on 35 L per minute, 35% FiO2. He continues to have negative cultures, sputum, urine and blood; however, the sputum that they sucked out of his oropharynx is very tenacious and thayer. He continues to have a low potassium. His sodium is 144, potassium is 3, chloride 97, CO2 is up to 40 now, BUN is 6, creatinine 0.6. His I's and O's yesterday showed he was minus 26. He continues to be very anxious. We are going to check a magnesium and repeat an x- ray and see how he is doing. cc: Luis A Calzada MD
[2019-02-21] MEDS: ATIVAN PO PRN ×2 (10:42→15:59)
--- NOTE | 2019-02-21 11:17 | Diag Imaging Result Doc PS360 ---
EXAM: CHEST-PORTABLE - 02/21/2019 HISTORY: infiltrate TECHNIQUE: Portable chest COMPARISON: 02/20/2019 FINDINGS: Heart size is normal. There are bilateral infiltrates, most prominent on the right, which appear grossly stable. There is a small right pleural effusion which appears stable. There is a small left pleural effusion which appears of decreased. There is no pneumothorax identified. IMPRESSION: Essentially stable bilateral infiltrates, most prominent on the right. Stable small right pleural effusion. Apparent decrease in left pleural effusion. Electronically signed by Jaswant No 02/21/2019 11:15 AM
[2019-02-21] MEDS ORDERED: MAGNESIUM SULFATE 2 GM/S.W.I. 2 GM/50 ML IVPB IV ONE (11:27)
[2019-02-21] MEDS: MIRALAX PO SCH (11:46)
[2019-02-21] MEDS: ROCEPHIN 1 GM in NS 50 ML IV SCH (11:49)
[2019-02-21] MEDS: SANTYL OINT TOP SCH (11:49)
[2019-02-21] MEDS: ZOFRAN IV PRN (19:40)
[2019-02-21] MEDS: ROBITUSSIN PO PRN (19:40)
[2019-02-21] MEDS: TYLENOL PO PRN (20:44)
[2019-02-21] MEDS ORDERED: KLOR-CON PO SCH (21:00)
[2019-02-22] MEDS: ROBITUSSIN PO PRN ×2 (02:30→19:33)
[2019-02-22] MEDS: TYLENOL PO PRN (02:30)
[2019-02-22] MEDS: ATIVAN PO PRN ×3 (02:31→16:56)
[2019-02-22] MEDS: NS 1,000 ML IV SCH ×2 (02:34→16:09)
[2019-02-22] MEDS: DUONEB (A & A) INH SCH ×6 (05:49→23:04)
[2019-02-22] MEDS: KLOR-CON PO SCH ×2 (08:15→20:25)
[2019-02-22] MEDS: NEURONTIN PO SCH (08:15)
[2019-02-22] MEDS: MIRALAX PO SCH (08:15)
[2019-02-22] MEDS: LEVAQUIN PO SCH (08:15)
[2019-02-22] MEDS: NICODERM PATCH TD SCH (08:16)
[2019-02-22] MEDS: SANTYL OINT TOP SCH (09:00)
[2019-02-22] MEDS: ROCEPHIN 1 GM in NS 50 ML IV SCH (12:03)
--- NOTE | 2019-02-22 13:11 | PROGRESS NOTE ---
DATE: 02/22/2019 The patient had an apparently restful night. He had been given kind of in near proximity some Ativan 1 mg and [place] 10 mg. He is currently sleeping. He is tachypneic as usual. No evidence of any fluid overload. VITAL SIGNS: Temp is 98, pulse 113, and respirations 26. His cultures, blood cultures, urine cultures, and sputum culture were all negative. We are doing a chest x-ray and a blood gas to see where he is currently. cc: Luis A Calzada MD
[2019-02-22 13:20] LABS: BE 24.1 mmoll (-3.0-3.0); BLOOD TYPE ARTERIAL; HCO3-(ACT) 43.5 mmoll (20.0-26.0); METHB 1.3 % (0.0-1.5); O2(CT) 13.5 mL/dL (15.0-23.0); PO2(98.6) 50 mmHg (60-100); SAMPLE BLOOD; SAO2 90.4 % (95.0-100.0); THB 11.1 g/dL (11.5-17.4); pH(98.6) 7.38 (7.35-7.45)
[2019-02-22 13:22] LABS: ALLEN TEST NO; MODALITY HIGH FLOW NASAL CAN; O2HB 86.5 % (95.0-99.0); PCO2(98.6) 91 mmHg (35-45)
[2019-02-22 13:25] LABS: BASO# 0.01 X1000 (0.0-0.2); BASO% 0.1 % (0.0-0.8); EOS# 0.23 X1000 (0.0-0.7); EOS% 2.6 % (0.0-10.0); HEMATOCRIT 35.7 % (42.0-52.0); HEMOGLOBIN 10.4 g/dL (14.0-18.0); IMM GRAN# 0.03 X1000 (0.0-0.04); IMM GRAN% 0.3 % (0.0-0.5); LYMPH# 0.53 X1000 (1.2-3.4); LYMPH% 5.9 % (20.5-51.1); MCH 28.2 PG (27-31); MCHC 29.1 g/dL (33-37); MCV 96.7 FL (81-99); MONO# 0.69 X1000 (0.11-0.59); MONO% 7.7 % (1.7-9.3); MPV 8.6 FL (7.4-10.4); NEUT% 83.4 % (42.2-75.2); PLT 249 X1000 (130-400); RBC 3.69 XMIL (4.7-6.1); RDW 14.3 % (11.5-14.5); WBC 8.99 X1000 (4.8-10.8)
[2019-02-22 13:54] LABS: AGAP 3; ALBUMIN 2.4 g/dL (3.5-5.0); ALKALINE PHOSPHATASE 57 U/L (32-122); BUN 9 mg/dL (8-22); CALCIUM 7.8 mg/dL (8.8-10.2); CHLORIDE 96 mmol/L (98-107); COSMO 287; CREATININE 0.5 mg/dL (0.7-1.2); ESTIMATED GFR > 60; GLUCOSE 153 mg/dL (70-104); GOT 12 U/L (10-34); GPT 5 U/L (10-44); POTASSIUM 4.2 mmol/L (3.5-5.1); SODIUM 143 mmol/L (136-145); TCO2 43 mmol/L (25-35); TOTAL BILIRUBIN < 0.15 mg/dL (0.20-1.00); TOTAL PROTEIN 4.5 g/dL (6.3-8.3)
--- NOTE | 2019-02-22 14:08 | Diag Imaging Result Doc PS360 ---
EXAM: CHEST-PORTABLE 02/22/2019 HISTORY: copd TECHNIQUE: AP portable at 1413 COMMENT: Compared to the previous study of 02/21/2019, there has been no appreciable change. There is still dense retrocardiac opacity and diffuse ill-defined interstitial and alveolar opacity in the right lung. There is apparent loculated pleural fluid on the right. IMPRESSION: Pulmonary edema and/or pneumonia. Right pleural effusion. Electronically signed by Mahendra High 02/22/2019 2:06 PM
[2019-02-22 18:25] LABS: BE 23.9 mmoll (-3.0-3.0); BLOOD TYPE ARTERIAL; HCO3-(ACT) 43.4 mmoll (20.0-26.0); METHB 1.2 % (0.0-1.5); O2(CT) 14.1 mL/dL (15.0-23.0); O2HB 90.4 % (95.0-99.0); PO2(98.6) 57 mmHg (60-100); SAMPLE BLOOD; SAO2 94.2 % (95.0-100.0); THB 11.1 g/dL (11.5-17.4); pH(98.6) 7.37 (7.35-7.45)
[2019-02-22 18:31] LABS: MODALITY CANNULA; PCO2(98.6) 93 mmHg (35-45)
[2019-02-22 18:32] LABS: ALLEN TEST NO
[2019-02-22] MEDS: ZOFRAN IV PRN (19:33)
[2019-02-23] MEDS: ROBITUSSIN PO PRN ×2 (02:12→06:42)
[2019-02-23] MEDS: NORCO-5 PO PRN (02:12)
[2019-02-23] MEDS: DUONEB (A & A) INH SCH ×6 (02:54→23:20)
[2019-02-23] MEDS: NS 1,000 ML IV SCH (06:42)
[2019-02-23 07:54] LABS: BLOOD TYPE ARTERIAL; SAMPLE BLOOD; pH(98.6) 7.36 (7.35-7.45)
[2019-02-23 07:55] LABS: HCO3-(ACT) 49.4 mmoll (20.0-26.0); PCO2(98.6) 89 mmHg (35-45); PO2(98.6) 84 mmHg (60-100)
[2019-02-23 07:58] LABS: ALLEN TEST YES; MODALITY BI PAP
[2019-02-23 08:15] LABS: AGAP 2; ALBUMIN 2.4 g/dL (3.5-5.0); ALKALINE PHOSPHATASE 52 U/L (32-122); BUN 11 mg/dL (8-22); CALCIUM 8.4 mg/dL (8.8-10.2); CHLORIDE 96 mmol/L (98-107); COSMO 284; CREATININE 0.6 mg/dL (0.7-1.2); ESTIMATED GFR > 60; GLUCOSE 119 mg/dL (70-104); GOT 12 U/L (10-34); GPT 6 U/L (10-44); POTASSIUM 4.5 mmol/L (3.5-5.1); SODIUM 142 mmol/L (136-145); TCO2 44 mmol/L (25-35); TOTAL BILIRUBIN < 0.15 mg/dL (0.20-1.00); TOTAL PROTEIN 5.3 g/dL (6.3-8.3)
[2019-02-23] MEDS: NEURONTIN PO SCH (08:58)
[2019-02-23] MEDS: NICODERM PATCH TD SCH (08:58)
[2019-02-23] MEDS: MIRALAX PO SCH ×3 (08:58→20:13)
[2019-02-23] MEDS: LEVAQUIN PO SCH (08:58)
[2019-02-23] MEDS: SANTYL OINT TOP SCH (08:59)
[2019-02-23] MEDS: KLOR-CON PO SCH (09:00)
[2019-02-23] MEDS: ATIVAN PO PRN (10:50)
--- NOTE | 2019-02-23 11:50 | PROGRESS NOTE ---
ADMISSION DATE: 02/16/2019 DISCHARGE DATE: HISTORY OF PRESENT ILLNESS: The patient is a 73 year old with COPD, vasculopathy, who is a patient of mine, who was admitted after he presented to the ER on the day of admission with a history of having been sick for approximately 2 weeks prior to his presentation, and he had become virtually comatose when he arrived here by ambulance. We put him on BiPAP, improved his respiratory status, moved him up into the Intensive Care Unit. His chest x-ray on admission showed changes compatible with a retrocardiac density, perihilar increased densities compatible with fibrosis versus pneumonia. His blood cultures, urine cultures, and sputum cultures all were negative. He was empirically placed on Rocephin and Levaquin. He has been managed in the ICU here with different respiratory modalities, from BiPAP to high flow O2. We are having some difficulties in trying to get him off of these medicines and feel like he needs to see a high school music instructor to evaluate him. cc: Luis A Calzada MD
[2019-02-23] MEDS: ROCEPHIN 1 GM in NS 50 ML IV SCH (12:48)
[2019-02-23] MEDS: LOVENOX SUBQ SCH (15:55)
[2019-02-23] MEDS: LASIX IV SCH ×2 (15:55→20:46)
--- NOTE | 2019-02-23 16:23 | PROGRESS NOTE ---
DATE: 02/23/2019 INTERVAL HISTORY: Mr. Mai was admitted from [facility] to [facility] for pulmonology evaluation considering his persistent hypercarbia. The patient's family is at bedside. SUBJECTIVE: Mr. Mai is on BiPAP, is not able to engage in meaningful communication at the moment. However, he states that he is not feeling chest pain. He wants to talk with the lung doctor. VITALS: Currently his temperature is 98.6 degrees, pulse 100, respiratory 22, blood pressure 108/54, saturating 97% on 30% BiPAP. PHYSICAL EXAMINATION: He has missing teeth.Lungs: Air entry bilaterally equal, however significantly decreased breath sounds. No wheeze, rhonchi, or crackles appreciated. However, examination is limited because of severe COPD changes and barrel shaped chest. S1, S2 normal. No murmur or gallop. Abdomen: Soft, nontender. No lower extremity edema. His dorsalis pedis pulsations are not palpable. His right popliteal pulses palpable, left side not palpable. His femoral pulses are palpable on the left. He has about 2 x 2 cm abrasion affecting anterior carr of the left side. His radialis pulses are also difficult to palpate. LABS: No CBC today. BMP suggestive of elevated carbon dioxide. He does appear to have compensated hypercarbic respiratory failure. Microbiology, no positive data. ASSESSMENT AND PLAN: 1. Acute hypercarbic respiratory failure due to acute chronic obstructive pulmonary disease exacerbation due to bilateral and predominantly right lung pneumonia. Continue BiPAP and high- flow nasal cannula cycling as tolerated. I will get CT scan chest for better evaluation of pneumonia. I will start him on intravenous Lasix for bilateral pleural effusion. Accordingly, I will make changes in antibiotics. I will continue albuterol ipratropium nebulization and start him on Symbicort. 2. History of peripheral artery disease requiring bilateral stent. at bedside states that he takes a baby aspirin every day, which I will start him on. His skin is warm to touch bilateral feet. He only has femoral pulses palpable on left lower extremity. 3. Constipation. I will increase MiraLAX frequency to b.i.d. I will also start him on bisacodyl suppositories. 4. History of coronary artery disease, status post CABG in 2011. I will continue him on his atorvastatin and his EKG on presentation had normal sinus rhythm with poor R- wave progression. 5. Others: He has a history of active tobacco abuse for which he is on nicotine patch. He also had prior history of alcohol abuse, which he quit about 5 years ago. 6. I will start him on DVT prophylaxis with enoxaparin and have physical therapy evaluate him. DISPOSITION: Continue monitoring patient in PVC unit. Plan of care discussed with the patient and multiple family members including . Their questions have been answered. cc: MD Luis A Milton MD MTDD
[2019-02-23] MEDS: DULCOLAX PR SCH ×2 (17:15→20:13)
--- NOTE | 2019-02-23 17:39 | EKG Report ---
Test Performed on : 02/23/2019 5:33:14 PM Test Reason : Monitor for QTc Blood Pressure : / mmHG Vent. Rate : 102 BPM Atrial Rate : 102 BPM P-R Int : 138 ms QRS Dur : 094 ms QT Int : 332 ms P-R-T Axes : 081 088 067 degrees QTc Int : 432 ms Sinus tachycardia. Moderate voltage criteria for LVH, may be normal variant Borderline ECG When compared with ECG of 16-FEB-2019 11:53, (Unconfirmed) No significant change was found Confirmed by Delilah LORD, Brian Spain ([id number]) on 02/24/2019 8:55:13 AM
[2019-02-23] MEDS: HALDOL IV PRN ×2 (17:49→20:46)
--- NOTE | 2019-02-23 18:40 | Diag Imaging Result Doc PS360 ---
EXAM: CT THORAX W/O CONTRAST HISTORY: Evaluate for pneumonia/lung fibrosis TECHNIQUE: CT chest without contrast COMPARISON: None. FINDINGS: There are small bilateral pleural effusions measuring less than 3 cm posteriorly and inferiorly in the midline. These small effusions appear to be loculated. Severe emphysema. No cardiomegaly. There is basilar atelectasis or fibrosis. Infiltrates posteriorly in the right upper lobe. No enlarged lymph nodes. There are several calcified left hilar lymph nodes with scattered granuloma. Limited images through the upper abdomen reveal multiple pancreatic calcifications and renal stones. IMPRESSION: 1.Severe emphysema 2.Small loculated bilateral pleural effusions 3.Infiltrates posteriorly in the right upper lobe This exam was performed using automated exposure control, adjustment of mA or kV according to patient size, and/or use of iterative reconstruction technique. Electronically signed by Piero Sweeney 02/23/2019 6:37 PM
[2019-02-23] MEDS: SYMBICORT 80/4.5 MICROGM INHALER INH SCH (19:36)
[2019-02-24] MEDS: HALDOL IV PRN ×4 (00:52→22:32)
[2019-02-24] MEDS: DUONEB (A & A) INH SCH ×6 (03:20→23:15)
[2019-02-24 04:42] LABS: ALLEN TEST YES; BE 30.8 mmoll (-3.0-3.0); BLOOD TYPE ARTERIAL; HCO3-(ACT) 48.9 mmoll (20.0-26.0); METHB 1.5 % (0.0-1.5); O2(CT) 16.2 mL/dL (15.0-23.0); O2HB 95.9 % (95.0-99.0); PO2(98.6) 137 mmHg (60-100); SAMPLE BLOOD; SAO2 99.3 % (95.0-100.0); THB 11.8 g/dL (11.5-17.4); pH(98.6) 7.52 (7.35-7.45)
[2019-02-24 04:46] LABS: MODALITY BI PAP; PCO2(98.6) 72 mmHg (35-45)
--- NOTE | 2019-02-24 06:30 | Diag Imaging Result Doc PS360 ---
EXAM: CHEST-PORTABLE HISTORY: dyspnea TECHNIQUE: Chest single view COMPARISON: 02/22/2019 FINDINGS: The lungs are well expanded. Dense infiltrates in the mid right lung. Overall the infiltrates in the right lung are slightly less prominent. There is a small right pleural effusion. No cardiomegaly. Pulmonary edema has decreased. IMPRESSION: Interval improvement Electronically signed by Piero Sweeney 02/24/2019 6:28 AM
[2019-02-24 06:31] LABS: BASO# 0.02 X1000 (0.0-0.2); BASO% 0.2 % (0.0-0.8); EOS# 0.28 X1000 (0.0-0.7); EOS% 2.4 % (0.0-10.0); HEMATOCRIT 37.4 % (42.0-52.0); HEMOGLOBIN 11.1 g/dL (14.0-18.0); IMM GRAN# 0.08 X1000 (0.0-0.04); IMM GRAN% 0.7 % (0.0-0.5); LYMPH# 0.84 X1000 (1.2-3.4); LYMPH% 7.3 % (20.5-51.1); MCH 28.2 PG (27-31); MCHC 29.7 g/dL (33-37); MCV 95.2 FL (81-99); MONO# 0.73 X1000 (0.11-0.59); MONO% 6.4 % (1.7-9.3); MPV 8.8 FL (7.4-10.4); NEUT# 9.48 X1000 (1.4-6.5); PLT 286 X1000 (130-400); RBC 3.93 XMIL (4.7-6.1); RDW 14.2 % (11.5-14.5); WBC 11.43 X1000 (4.8-10.8)
[2019-02-24 07:20] LABS: AGAP 5; BUN 15 mg/dL (8-22); CALCIUM 8.4 mg/dL (8.8-10.2); CHLORIDE 85 mmol/L (98-107); COSMO 287; CREATININE 0.8 mg/dL (0.7-1.2); ESTIMATED GFR > 60; GLUCOSE 117 mg/dL (70-104); MAGNESIUM 1.7 mg/dL (1.5-2.7); POTASSIUM 3.9 mmol/L (3.5-5.1); SODIUM 139 mmol/L (136-145); TCO2 49 mmol/L (25-35)
[2019-02-24] MEDS: LIPITOR PO SCH (09:32)
[2019-02-24] MEDS: NICODERM PATCH TD SCH (09:32)
[2019-02-24] MEDS: NEURONTIN PO SCH (09:32)
[2019-02-24] MEDS: ASPIRIN PO SCH (09:32)
[2019-02-24] MEDS: MIRALAX PO SCH ×2 (09:32→20:45)
[2019-02-24] MEDS: LEVAQUIN PO SCH (09:32)
[2019-02-24] MEDS: SANTYL OINT TOP SCH (09:34)
[2019-02-24] MEDS: DULCOLAX PR SCH ×2 (10:00→20:48)
[2019-02-24] MEDS: SOLU-MEDROL IV SCH ×2 (12:58→18:11)
[2019-02-24] MEDS ORDERED: KLOR-CON PO ONE (13:05)
[2019-02-24] MEDS: MAGNESIUM SULFATE 2 GM/S.W.I. 2 GM/50 ML IVPB IV SCH ×2 (13:28→16:18)
[2019-02-24] MEDS: LASIX IV SCH ×2 (13:29→20:47)
[2019-02-24] MEDS: PRILOSEC PO SCH (13:47)
[2019-02-24] MEDS: LOVENOX SUBQ SCH (16:18)
--- NOTE | 2019-02-24 16:48 | PROGRESS NOTE ---
DATE: 02/24/2019 INTERVAL HISTORY: He received 2 doses of Lasix following which he had a good urine output in the morning time. Repeat chest x-ray suggests improving pleural effusion. CT scan chest had detected loculated pleural effusions and a lung infiltrate. He was able to wear BiPAP overnight. In the morning time, he appears to be doing better. He is off BiPAP since almost 5 hours which he is tolerating well. SUBJECTIVE: He states he is feeling better. He also had a good bowel movement yesterday. VITAL SIGNS: Temperature 98.3 degrees, pulse 92, respiratory rate 30, blood pressure 101/52. Saturating 90 to 92 percent on 6 L nasal cannula. PHYSICAL EXAMINATION: General: He does not appear in any acute distress. Oral cavity is moist. Lungs: He does have better air movement today, as compared to yesterday, though he has end- expiratory wheezes. Cardiac: S1, S2 normal. No murmur, rub, or gallop. Abdomen: Soft, nontender. No lower extremity edema. Extremities: His dorsalis pedis pulses are difficult to palpate bilaterally. On the right lower extremity, his femoral and popliteal pulses are palpable. On left lower extremity, only femoral pulses are palpable. His extremity is, however, warm to touch. He has about 2 x 2 cm abrasion affecting anterior carr of the left side. His radialis pulses are also difficult to palpate. Neurologic: He is alert and oriented x3 at the moment. [place]ORATORY [place]: [place] [address], 2.4% eosinophil. ABG in the morning time had hypercarbia but alkalosis. His kidney function is normal. His carbon dioxide is increasing. His magnesium was 1.7. Microbiology: No data. IMAGING: Chest x-ray suggests interval improvement. CT scan yesterday had severe emphysema, small loculated bilateral pleural effusions, infiltrates in the right upper lobe. ASSESSMENT AND PLAN: 1. Acute hypercapnic respiratory failure due to acute chronic obstructive pulmonary disease exacerbation, due to bilaterally and predominantly right lung pneumonia. Continue to cycle BiPAP and nasal cannula as tolerated. Change antibiotics to intravenous levofloxacin 750 mg daily and give additional doses of intravenous Lasix for his pleural effusions. Follow up chest x-ray and ABG as required. I will also continue him on Symbicort, intravenous steroid and albuterol ipratropium nebulization. 2. History of peripheral artery disease requiring her bilateral lower extremity stent. Continue baby aspirin daily. His skin is warm to touch bilaterally. 3. Constipation, now resolved. I will keep him on bowel regimen to ensure 1 to 2 soft formed bowel movements every day. 4. History of coronary artery disease status post coronary artery bypass grafting in 2012. Continue aspirin, atorvastatin. He does have poor R-wave progression on EKG. 5. Others. He has history of tobacco abuse for which he is on nicotine patch. He had prior history of alcohol abuse, which he quit about 5 years ago; continue enoxaparin for deep venous thrombosis prophylaxis and add omeprazole for stress ulcer prophylaxis since he has been started on IV steroids. 6. Disposition: Continue to monitor patient inside the hospital. His functional status appears to be poor. He may benefit from going to rehab, eventually. However, for now, I would continue to monitor him until his medical conditions resolve. cc: MD Luis A Milton MD
--- NOTE | 2019-02-24 18:45 | CONSULTATION ---
DATE OF CONSULTATION: 02/24/2019 REQUESTING PROVIDER: Bryan Galvez MD REASON FOR CONSULTATION: Hypercapnic respiratory failure. HISTORY OF PRESENT ILLNESS: This is a 73-year-old male with a medical history of COPD, ongoing tobacco abuse, chronic hypoxic respiratory failure, peripheral arterial vascular disease, history of alcoholism, hypertension, coronary artery disease, chronic pancreatitis, hypercholesterolemia, esophageal tears and neuropathy. He presented to the [facility] on 02/16/2019 with worsening shortness of breath and altered mental status for about a week. Initial workup in the ER revealed bronchopneumonia with right pleural effusion, acute hypercapnic respiratory failure and acute on chronic hypoxemic respiratory failure. He has been treated with antibiotic including ceftriaxone and levofloxacin, DuoNeb q.4 hours and BiPAP or high-flow nasal cannula in the ICU of [facility] since admission, but apparently he develops some difficulty to get off BiPAP or high-flow nasal cannula as his pCO2 has been staying between high 50s to 90s. 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 The patient currently is lying in bed with no acute distress noted. He is on nasal cannula at 5 L. He coughs occasionally with some whitish or light yellowish sputum. The patient's and daughter at the bedside. The patient did have some low-grade fever since admission to the [facility], [place], but currently is resolved. He also had some constipation and has been on MiraLAX since yesterday. He reported he had a bowel movement yesterday and this morning. He reports generally he feels a lot better. He reports no chest pain or palpitation. He states he cannot tolerate the BiPAP which lissette him. He has no pain at this time. He has no nausea, vomiting, wheezing, or shortness of breath. The patient's does report that patient has snoring. PAST MEDICAL HISTORY: 1. COPD on Duoneb and rescue inhaler at home. 2. Ongoing tobacco abuse. 3. Chronic hypoxic respiratory failure on continual oxygen at home at 2 L. 4. Peripheral arterial vascular disease, status post 4 stents placement on the left lower extremity and 3 stents placement in the right lower extremity. 5. History of alcoholism, quit since 2013. 6. Hypertension. 7. Coronary artery disease status post coronary artery bypass graft with coronary stenting. 8. Chronic pancreatitis with pancreatic stent placement on 01/29/2014. 9. Hypercholesterolemia. 10. Esophageal tears status post esophageal surgery. 11. Neuropathy. SOCIAL HISTORY: The patient is and lives at home with his . He smokes less than half a pack prior to this admission. He used to smoke up to 2 to 3 packs per day and has been cutting down gradually. He used to be a heavy drinker and quit drinking since 2013 because of pancreatitis. He has no history of illicit drug use. FAMILY HISTORY: The patient's father of heart attack. The patient's mother of bone cancer. The patient's grandmother has had breast cancer. One of patient's sister had breast cancer, too. ALLERGIES: Iodine. REVIEW OF SYSTEMS: A 10-point review of systems was conducted and the pertinent is listed within the HPI, otherwise noncontributory. PHYSICAL EXAMINATION: Vital Signs: Temperature 98.5 degrees, blood pressure 114/56, pulse 95, respiratory rate 20, oxygen saturation 94% on nasal cannula at 5. General: Chronically ill appearing, lying in bed with no acute distress noted. The patient's and daughter at the bedside. HEENT: Poor dentition. Trachea midline. Mucosa pink and moist. Atraumatic, normocephalic. Respiratory: Even and unlabored. Symmetrical excursion. Increased AP diameter bilaterally auscultation revealed. Early inspiratory crackles bilaterally and diminished breathing sounds bilaterally. Cardiovascular: Regular rate and rhythm. Gastrointestinal: Soft, flat, nontender. Normoactive bowel sounds in all 4 quadrants. Extremities: No pedal edema. No cyanosis. No clubbing. Dorsalis pedis 1+ bilaterally. Left lower leg covered with dry and clean dressings. Neurologic: Alert and oriented x2. Speech fluent. Follows commands. LABORATORY DATA: White blood cells 11.43, hemoglobin 11.1, hematocrit 37.4, platelet 286,000. Sodium 139, potassium 3.9, chloride 85, carbon dioxide 49, BUN 15, creatinine 0.8, glucose 117. ABG, pH 7.52, pCO2 72, PO2 137, HCO3 48.9, base excess 30.8 and oxyhemoglobin 95.9. IMAGING DATA: Chest x-ray this morning showed interval improvement in the right lung infiltrates. Stable small right pleural effusion and improved pulmonary edema. CT thorax without contrast on 02/23/2019 showed small bilateral pleural effusions measuring less than 3 cm posterior and inferior in the midline, which appear to be loculated, severe emphysema, basilar atelectasis or fibrosis and infiltrates posteriorly in the right upper lobe. ASSESSMENT: This is a 73-year-old male with a medical history of chronic obstructive pulmonary disease, ongoing tobacco abuse, chronic hypoxic respiratory failure, peripheral arterial vascular disease, history of alcoholism, hypertension, coronary artery disease, chronic pancreatitis, hypercholesterolemia, esophageal tears and neuropathy. He was transferred from [facility] yesterday per Dr. Calzada to our facility with persistent hypercapnic respiratory failure, which has not been improved by BiPAP or high-flow nasal cannula. DIAGNOSES: 1. Acute on chronic hypoxic respiratory failure. 2. Acute hypercapnic respiratory failure. 3. Chronic obstructive pulmonary disease, severe emphysema with ongoing tobacco abuse. No exacerbation noted. 4. Basilar atelectasis versus fibrosis with Small loculated bilateral pleural effusions. 5. Infiltrates posteriorly in the right upper lobe, likely pneumonia. 6. Do Not Resuscitate level 1. PLAN: 1. Continue supplemental oxygen. We will start high-flow nasal cannula during the daytime and BiPAP at bedtime and as needed. 2. Continue antibiotic per Dr. Galvez. We will start steroids and continue breathing treatment. 3. Follow up with ABG, CBC, BMP and chest x-ray. 4. Continue GI and DVT prophylaxis. 5. Daily smoking cessation education. Patient currently stated that he has no confidence that he can quit smoking completely. 6. Patient likely need trilogy at discharge. 7. Further recommendations pending hospital course. Thank you for the courtesy of this consult. Dictated by STACI Cazares for Marilee Hanks MD cc: STACI Cazares MD Michael Putman, MD [facility]PITALAubrie
[2019-02-24] MEDS: SYMBICORT 80/4.5 MICROGM INHALER INH SCH (20:08)
[2019-02-24] MEDS: NORCO-5 PO PRN (20:45)
[2019-02-25] MEDS ORDERED: ATIVAN IV PRN (00:26)
[2019-02-25] MEDS: SOLU-MEDROL IV SCH ×4 (01:13→18:40)
[2019-02-25] MEDS: DUONEB (A & A) INH SCH ×6 (03:29→23:18)
[2019-02-25 04:14] LABS: ALLEN TEST YES; BE 33.1 mmoll (-3.0-3.0); BLOOD TYPE ARTERIAL; HCO3-(ACT) 50.7 mmoll (20.0-26.0); O2(CT) 15.4 mL/dL (15.0-23.0); O2HB 96.1 % (95.0-99.0); PO2(98.6) 84 mmHg (60-100); SAMPLE BLOOD; SAO2 98.8 % (95.0-100.0); THB 11.3 g/dL (11.5-17.4); pH(98.6) 7.53 (7.35-7.45)
[2019-02-25 04:21] LABS: MODALITY CANNULA; PCO2(98.6) 73 mmHg (35-45)
[2019-02-25] MEDS: PRILOSEC PO SCH (06:35)
[2019-02-25] MEDS: NORCO-5 PO PRN ×2 (06:35→20:44)
--- NOTE | 2019-02-25 07:15 | Diag Imaging Result Doc PS360 ---
EXAM: CHEST-1 VIEW 02/25/2019 HISTORY: SOB TECHNIQUE: AP portable at 0558 COMMENT: There is apparent COPD. There are patchy alveolar opacities in the right upper lobe inferiorly and the right lower lobe. There is also some slight increase in interstitial markings in both lungs. The heart size and pulmonary vascularity are within normal limits. Compared to 02/24/2019 there may be slightly less pleural fluid on the right. The right upper lobe opacity has also improved slightly. IMPRESSION: COPD, mild pulmonary edema, patchy pneumonia particularly in the right upper and lower lobes. Electronically signed by Mahendra High 02/25/2019 7:13 AM
[2019-02-25] MEDS: SYMBICORT 80/4.5 MICROGM INHALER INH SCH ×3 (08:11→19:32)
[2019-02-25] MEDS: NEURONTIN PO SCH (08:44)
[2019-02-25] MEDS: ASPIRIN PO SCH (08:44)
[2019-02-25] MEDS: LIPITOR PO SCH (08:44)
[2019-02-25] MEDS: NICODERM PATCH TD SCH (08:44)
[2019-02-25] MEDS: DULCOLAX PR SCH ×2 (08:44→20:44)
[2019-02-25] MEDS: SANTYL OINT TOP SCH (08:44)
[2019-02-25] MEDS: MIRALAX PO SCH ×2 (08:44→20:44)
[2019-02-25] MEDS: LEVAQUIN PO SCH (08:44)
[2019-02-25] MEDS ORDERED: PRILOSEC PO SCH (13:33)
[2019-02-25] MEDS: LOVENOX SUBQ SCH (15:37)
[2019-02-25] MEDS: HALDOL IV PRN (20:44)
--- NOTE | 2019-02-25 20:53 | PROGRESS NOTE ---
DATE: 02/25/2019 SUBJECTIVE: The patient is resting comfortably in bed. He states that his breathing is about the same. He reports that he had a bowel movement this morning. OBJECTIVE: Vital signs: Temperature 97.9 degrees, blood pressure 116/51, heart rate 92, respirations 18, O2 saturation 93% on 4 L nasal cannula. Intake 500, output 5.7 L.General: This is a chronically ill-appearing elderly male, lying in bed in no acute distress. Heart: S1, S2, normal. Lungs: Equal air entry bilaterally. No wheezing. No rales. No rhonchi. Abdomen: Positive bowel sounds. Soft, nontender, nondistended. Extremities: No edema, no cyanosis. Neurologic: The patient is alert and oriented x4. LABORATORY DATA: ABG with pH of 7.53, pCO2 of 73, pO2 is 84, bicarbonate 50. DIAGNOSTIC DATA: Chest x-ray shows COPD, mild pulmonary edema and patchy pneumonia in the right upper and lower lobes. ASSESSMENT AND PLAN: 1. Acute on chronic hypoxemic and hypercapnic respiratory failure. Multifactorial. Continue to treat the underlying issues. 2. Right lobe pneumonia. Continue with antibiotic therapy, supplemental oxygen and bronchodilator therapy. 3. Chronic obstructive pulmonary disease exacerbation. Continue with bronchodilator therapy, supplemental oxygen and antibiotics. 4. Pulmonary edema. We will give the patient a dose of Lasix today and monitor his response. 5. Constipation. Continue with scheduled laxative therapy. 6. Coronary artery disease status post coronary artery bypass graft. Continue on the current cardiac medications. 7. Tobacco dependence. The patient has been counseled about smoking cessation. 8. Deep vein thrombosis prophylaxis. Continue on Lovenox. cc: MD Luis A Ruiz MD [facility]
[2019-02-26] MEDS: SOLU-MEDROL IV SCH ×4 (01:38→20:38)
[2019-02-26] MEDS: DUONEB (A & A) INH SCH ×6 (03:36→23:42)
[2019-02-26 04:41] LABS: ALLEN TEST YES; BLOOD TYPE ARTERIAL; HCO3-(ACT) 45.2 mmoll (20.0-26.0); METHB 0.7 % (0.0-1.5); O2(CT) 14.7 mL/dL (15.0-23.0); O2HB 96.8 % (95.0-99.0); PO2(98.6) 109 mmHg (60-100); SAMPLE BLOOD; SAO2 98.7 % (95.0-100.0); THB 10.7 g/dL (11.5-17.4); pH(98.6) 7.49 (7.35-7.45)
[2019-02-26 04:44] LABS: MODALITY CANNULA; PCO2(98.6) 70 mmHg (35-45)
[2019-02-26] MEDS: PRILOSEC PO SCH (06:04)
[2019-02-26 06:58] LABS: HEMATOCRIT 35.4 % (42.0-52.0); HEMOGLOBIN 10.9 g/dL (14.0-18.0); IMM GRAN# 0.04 X1000 (0.0-0.04); IMM GRAN% 0.2 % (0.0-0.5); LYMPH# 0.21 X1000 (1.2-3.4); LYMPH% 1.2 % (20.5-51.1); MCH 28.2 PG (27-31); MCHC 30.8 g/dL (33-37); MCV 91.5 FL (81-99); MONO% 1.7 % (1.7-9.3); MPV 8.9 FL (7.4-10.4); NEUT# 16.98 X1000 (1.4-6.5); NEUT% 96.9 % (42.2-75.2); PLT 337 X1000 (130-400); RBC 3.87 XMIL (4.7-6.1); RDW 13.4 % (11.5-14.5); WBC 17.53 X1000 (4.8-10.8)
[2019-02-26 07:17] LABS: ESTIMATED GFR > 60
[2019-02-26 07:18] LABS: AGAP 10; BUN 24 mg/dL (8-22); CALCIUM 8.5 mg/dL (8.8-10.2); CHLORIDE 83 mmol/L (98-107); COSMO 285; CREATININE 0.7 mg/dL (0.7-1.2); GLUCOSE 202 mg/dL (70-104); MAGNESIUM 2.3 mg/dL (1.5-2.7); POTASSIUM 3.5 mmol/L (3.5-5.1); SODIUM 138 mmol/L (136-145); TCO2 45 mmol/L (25-35)
[2019-02-26] MEDS: SYMBICORT 80/4.5 MICROGM INHALER INH SCH ×3 (07:43→19:42)
[2019-02-26 08:14] LABS: BANDS 4 % (0-1); EOS 2 % (1-10); SEGS 94 % (42-75)
[2019-02-26] MEDS: MIRALAX PO SCH ×2 (08:49→21:33)
[2019-02-26] MEDS: LEVAQUIN PO SCH (08:49)
[2019-02-26] MEDS: LIPITOR PO SCH (08:50)
[2019-02-26] MEDS: NEURONTIN PO SCH (08:50)
[2019-02-26] MEDS: ASPIRIN PO SCH (08:50)
[2019-02-26] MEDS: NICODERM PATCH TD SCH (08:51)
[2019-02-26] MEDS: SANTYL OINT TOP SCH (08:51)
[2019-02-26] MEDS: LASIX IV SCH (08:51)
[2019-02-26] MEDS: DULCOLAX PR SCH ×2 (10:31→21:33)
[2019-02-26] MEDS: HALDOL IV PRN ×2 (11:03→20:38)
[2019-02-26] MEDS: NORCO-5 PO PRN ×2 (11:08→20:38)
[2019-02-26] MEDS: LOVENOX SUBQ SCH (17:16)
[2019-02-26] MEDS: AMBIEN PO SCH (20:39)
--- NOTE | 2019-02-26 23:55 | PROGRESS NOTE ---
DATE: 02/26/2019 SUBJECTIVE: The patient is resting comfortably in bed. He has no complaints at this time. OBJECTIVE: Vital Signs: Temperature 98.1 degrees, blood pressure 116/51, heart rate 88, respirations 18, O2 saturation is 97% on 4 L nasal cannula. General: This is a chronically ill- appearing elderly male lying in bed in no acute distress. Heart: S1, S2 normal. Regular rate and rhythm. Lungs: Equal air entry bilaterally. No wheezing. No rales. Abdomen: Positive bowel sounds. Soft, nontender, nondistended. Extremities: No edema, no cyanosis, no calf tenderness. Neurologic: The patient is alert and oriented x3. LABORATORY DATA: White blood cell count is 17, hemoglobin is 10, hematocrit is 35, platelets 337,000. Sodium is 138, potassium is 3.5, chloride is 83, CO2 is 45, BUN is 24, creatinine is 0.7 glucose is 202. ASSESSMENT AND PLAN: 1. Acute on chronic hypoxemic and hypercapnic respiratory failure. Multifactorial. Continue to treat the underlying issues. 2. Right lobe pneumonia. Continue with antibiotic therapy, bronchodilator therapy and supplemental oxygen. We will consult with ID for further treatment recommendations. 3. Chronic obstructive pulmonary disease exacerbation. Continue with bronchodilator therapy, supplemental oxygen and antibiotics. 4. Pulmonary edema. Stable. 5. Coronary artery disease status post coronary artery bypass graft. Continue on the current cardiac medications. 6. Constipation. Continue with scheduled laxative therapy. 7. Tobacco dependence. The patient has been counseled about smoking cessation. 8. Deep vein thrombosis prophylaxis. Continue on Lovenox. cc: MD Luis A Ruiz MD MTDD
[2019-02-27] MEDS: HALDOL IV PRN ×3 (01:54→21:27)
[2019-02-27] MEDS: SOLU-MEDROL IV SCH ×3 (01:54→16:24)
[2019-02-27] MEDS: DUONEB (A & A) INH SCH ×6 (03:38→23:31)
[2019-02-27 04:56] LABS: ALLEN TEST YES; BE 25.9 mmoll (-3.0-3.0); BLOOD TYPE ARTERIAL; HCO3-(ACT) 45.1 mmoll (20.0-26.0); METHB 1.1 % (0.0-1.5); O2(CT) 15.3 mL/dL (15.0-23.0); O2HB 95.7 % (95.0-99.0); PO2(98.6) 80 mmHg (60-100); SAMPLE BLOOD; SAO2 98.7 % (95.0-100.0); THB 11.3 g/dL (11.5-17.4); pH(98.6) 7.54 (7.35-7.45)
[2019-02-27 05:10] LABS: MODALITY CANNULA
[2019-02-27 05:12] LABS: PCO2(98.6) 61 mmHg (35-45)
[2019-02-27] MEDS: PRILOSEC PO SCH ×2 (05:55→06:04)
--- NOTE | 2019-02-27 06:38 | Diag Imaging Result Doc PS360 ---
EXAM: CHEST-PORTABLE HISTORY: pneumonia TECHNIQUE: Chest single view COMPARISON: 02/25/2019 FINDINGS: The lungs are well expanded. No cardiomegaly. Bilateral infiltrates. These are less pronounced in the mid right lung. Tiny effusions. IMPRESSION: Mild interval improvement. Electronically signed by Piero Sweeney 02/27/2019 6:36 AM
[2019-02-27] MEDS: SYMBICORT 80/4.5 MICROGM INHALER INH SCH ×2 (08:06→19:41)
[2019-02-27] MEDS: NEURONTIN PO SCH (09:23)
[2019-02-27] MEDS: MIRALAX PO SCH ×2 (09:23→21:27)
[2019-02-27] MEDS: LIPITOR PO SCH (09:23)
[2019-02-27] MEDS: SANTYL OINT TOP SCH (09:24)
[2019-02-27] MEDS: NICODERM PATCH TD SCH (09:24)
[2019-02-27] MEDS: LASIX IV SCH (09:25)
[2019-02-27] MEDS: ASPIRIN PO SCH (09:25)
[2019-02-27] MEDS: LEVAQUIN 500 MG/D5W 500 MG/100 ML IVPB IV SCH ×3 (09:25→09:41)
[2019-02-27] MEDS: DULCOLAX PR SCH ×2 (09:25→21:32)
[2019-02-27] MEDS: NORCO-5 PO PRN ×2 (11:38→21:27)
--- NOTE | 2019-02-27 13:32 | INFECTIOUS DISEASE CONSULT REP ---
DATE: 02/27/2019 PRESENT ILLNESS: The patient has a right lung infiltrate. RECOMMENDATIONS: I agree with treating the patient with Levaquin. His x-ray has not changed much but because he has severe COPD, it is going to take quite a bit of time before it shows clearing of the pneumonia. The patient seems to be much better than when he came. I agree with treating the patient with Levaquin. I have electronically generated a prescription for Levaquin 500 mg p.o. daily for another week and my plan is to have the patient come back to my office in a week and see how he is doing and repeat the chest x-ray. Some of the side effects of Levaquin including rash, diarrhea, seizures, and tendon rupture have been explained to the patient, who agrees with treatment. DISCUSSION: The patient tells me about 3 weeks ago, he started coughing. He initially brought up some yellow sputum but that stopped. He also had fever, shortness of breath, and anorexia. He told me that since he has been sick, he has lost 25 pounds. He did tell me, however, that he feels much better and he would like very much to go home. Laboratory studies thus far show arterial blood gases, the pH is 7.54, the PO2 is 80, and the pCO2 is 61. The patient's CBC shows a white count of 17,530, hemoglobin 10.9, and platelet count 337,000. I think a good deal of the patient's leukocytosis is due to the fact that he is on high doses of steroids. Blood gases show a pH of 7.54, PO2 of 80, and a pCO2 of 61. Creatinine is 0.7. GFR is greater than 60. Urinary antigens for Legionella and pneumococcus are negative. Sputum culture grew normal juan manuel and yeast. Blood cultures are negative. Chest x-ray shows patchy right lung opacities. REVIEW OF SYSTEMS: Eyes and Ears: He says his hearing and vision are good. Neck: No stiffness. Respiratory: See present illness. Cardiac: No chest pain or palpitations. GI: The patient has lost weight, as mentioned above. During his stay here in the hospital, he has had diarrhea for 2 days but that has cleared up and since his diarrhea has cleared, he has been somewhat constipated. : No dysuria or flank pain. Neurologic: No seizures. No loss of motor or sensory function. Integument: No rashes. PREVIOUS HOSPITALIZATIONS AND OPERATIONS: The patient has had diffuse stents put in him because of peripheral vascular disease. This included coronary artery stents and a stent because the patient had pancreatitis. The patient does have chronic pancreatitis. He also has hyperlipidemia, chronic obstructive pulmonary disease, and peripheral vascular disease. INFECTIOUS DISEASE HISTORY: Negative for pneumonia and UTI. FAMILY HISTORY: Positive for diabetes mellitus, hypertension, myocardial infarction, and cancer. SOCIAL HISTORY: [place] He is . He has cats for pets. He smokes cigarettes. He stopped drinking alcoholic beverages 5 to 6 years ago. He does not abuse drugs. The patient does tell me that he was exposed to asbestos many years ago. The patient does not use illicit drugs. ALLERGIES: He has no drug allergies. HOME MEDICATIONS: Include the following: Lipitor, gabapentin, hydrocodone, and Levaquin. PHYSICAL EXAMINATION: Vital Signs: Temperature is 97.6 degrees, pulse 87, respirations 17, blood pressure 99/42. The patient weighs 120 pounds. General: This is a chronically ill-appearing, elderly male. He is in no acute distress. Head, Eyes, Ears, Nose, and Throat: He can hear my spoken words and see near objects. He does not have any drainage coming from his nose or ears. He does not have any white patches in his mouth. He has poor dental hygiene and is missing many of his teeth. Neck: No meningismus. Lungs: There were some basilar rales on the right side. Cardiovascular: Heart rate is regular. There were diminished peripheral pulses. Abdomen: Soft and nontender.: Neurologic: The patient is alert. He can move his extremities. There is no tremor. His memory as regarding his as regarding his medical history was slightly diminished. Integument: The patient does have some small ulcerated areas on his back and one on his leg. They are not purulent. They are slightly erythematous and they are not swollen. Thank you for the consult. cc: MD Luis A Bhardwaj MD
[2019-02-27] MEDS: LOVENOX SUBQ SCH (15:07)
[2019-02-27] MEDS: AMBIEN PO SCH (21:27)
[2019-02-28] MEDS: SOLU-MEDROL IV SCH ×3 (00:57→20:34)
[2019-02-28] MEDS ORDERED: ATIVAN IV ONE (01:47)
[2019-02-28] MEDS: DUONEB (A & A) INH SCH ×6 (03:40→23:08)
[2019-02-28 03:42] LABS: ALLEN TEST YES; BE 27.5 mmoll (-3.0-3.0); BLOOD TYPE ARTERIAL; HCO3-(ACT) 46.4 mmoll (20.0-26.0); METHB 1.4 % (0.0-1.5); O2(CT) 15.7 mL/dL (15.0-23.0); O2HB 95.8 % (95.0-99.0); PO2(98.6) 91 mmHg (60-100); SAMPLE BLOOD; SAO2 98.4 % (95.0-100.0); THB 11.6 g/dL (11.5-17.4); pH(98.6) 7.52 (7.35-7.45)
[2019-02-28 03:43] LABS: MODALITY CANNULA; PCO2(98.6) 67 mmHg (35-45)
--- NOTE | 2019-02-28 03:51 | PROGRESS NOTE ---
DATE: 02/27/2019 SUBJECTIVE: The patient is sitting up, eating breakfast. He has no complaints. OBJECTIVE: Vital Signs: Temperature 97 degrees, blood pressure 117/47, heart rate 87, respirations 23, O2 saturation 96% on 4 L nasal cannula. General: This is a chronically ill- appearing,, elderly male, sitting at the edge of the bed in no acute distress. Heart: S1, S2 normal. Regular rate and rhythm. Lungs: Equal air entry bilaterally. Abdomen: Positive bowel sounds. Soft, nontender, nondistended. Extremities: No edema, no cyanosis. Neurologic: The patient is alert and oriented x4. LABS: ABGs: PH 7.54, pCO2 61, pO2 80, CO2 45. ASSESSMENT AND PLAN: 1. Acute on chronic hypoxemic and hypercapnic respiratory failure. Multifactorial. 2. Right lobe pneumonia. Continue on Levaquin as recommended by Dr. Arevalo. 3. Constipation. Improved. Continue with scheduled laxative therapy. 4. Chronic obstructive pulmonary disease exacerbation, improved. Continue with bronchodilator therapy and supplemental oxygen. 5. Coronary artery disease, status post coronary artery bypass graft. Continue on current cardiac medications. 6. Tobacco dependence. The patient has been counseled about smoking cessation. 7. Pulmonary edema. Improved. 8. Deep vein thrombosis prophylaxis. Continue on Lovenox. 9. Disposition. The patient has been cleared by Dr. Arevalo for discharge home. We are currently waiting on the patient's Trilogy machine to arrive. The patient will be discharged home with home health services. cc: MD Luis A Ruiz MD [facility]TD[facility]
[2019-02-28 06:44] LABS: ESTIMATED GFR > 60
[2019-02-28 06:57] LABS: AGAP 10; BUN 33 mg/dL (8-22); CALCIUM 8.8 mg/dL (8.8-10.2); CHLORIDE 84 mmol/L (98-107); COSMO 288; CREATININE 0.8 mg/dL (0.7-1.2); EOS# 0.03 X1000 (0.0-0.7); EOS% 0.2 % (0.0-10.0); GLUCOSE 165 mg/dL (70-104); HEMATOCRIT 36.6 % (42.0-52.0); HEMOGLOBIN 11.3 g/dL (14.0-18.0); IMM GRAN# 0.03 X1000 (0.0-0.04); IMM GRAN% 0.2 % (0.0-0.5); LYMPH# 0.28 X1000 (1.2-3.4); MAGNESIUM 2.1 mg/dL (1.5-2.7); MCH 27.9 PG (27-31); MCHC 30.9 g/dL (33-37); MCV 90.4 FL (81-99); MONO# 0.35 X1000 (0.11-0.59); MONO% 2.5 % (1.7-9.3); MPV 8.8 FL (7.4-10.4); NEUT# 13.31 X1000 (1.4-6.5); NEUT% 95.1 % (42.2-75.2); PLT 361 X1000 (130-400); POTASSIUM 3.2 mmol/L (3.5-5.1); RBC 4.05 XMIL (4.7-6.1); RDW 13.6 % (11.5-14.5); SODIUM 139 mmol/L (136-145); TCO2 45 mmol/L (25-35)
[2019-02-28] MEDS: SYMBICORT 80/4.5 MICROGM INHALER INH SCH ×2 (08:00→19:51)
--- NOTE | 2019-02-28 08:11 | Diag Imaging Result Doc PS360 ---
EXAM: CHEST-PORTABLE HISTORY: pneumonia TECHNIQUE: Portable chest COMPARISON: 02/27/2019 FINDINGS: The lungs are well expanded. The heart is not enlarged. The vessels are not distended. Infiltrates are slightly less pronounced on the current exam. No effusion identified. IMPRESSION: Interval improvement Electronically signed by Piero Sweeney 02/28/2019 8:08 AM
[2019-02-28] MEDS: LASIX IV SCH (08:21)
[2019-02-28] MEDS: ASPIRIN PO SCH (08:21)
[2019-02-28] MEDS: PRILOSEC PO SCH (08:21)
[2019-02-28] MEDS: DULCOLAX PR SCH ×3 (08:21→20:40)
[2019-02-28] MEDS: MIRALAX PO SCH ×2 (08:22→20:35)
[2019-02-28] MEDS: LEVAQUIN 500 MG/D5W 500 MG/100 ML IVPB IV SCH (08:22)
[2019-02-28] MEDS: LIPITOR PO SCH (08:22)
[2019-02-28] MEDS: SANTYL OINT TOP SCH (08:22)
[2019-02-28] MEDS: NEURONTIN PO SCH (08:22)
[2019-02-28] MEDS ORDERED: KLOR-CON PO ONE (08:42)
[2019-02-28] MEDS: NICODERM PATCH TD SCH (10:29)
--- NOTE | 2019-02-28 15:25 | INFECTIOUS DISEASE PROGRESS NO ---
DATE: 02/28/2019 PRESENT ILLNESS: Mr. Mai being treated for pneumonia. MEDICATIONS: He is receiving Levaquin 500 mg IV daily as well as IV Solu- Medrol. PHYSICAL EXAMINATION: Vital Signs: Temperature is 97.1 degrees, pulse rate 83, respiratory rate 21, blood pressure 104/48, O2 saturation is 96% on 4 L. General: This is a chronically ill- appearing, elderly gentleman. He is lying in the bed currently in no acute distress. HEENT: Atraumatic, normocephalic. Oral mucous membranes are pink and moist. Conjunctivae are pink. Neck: Supple. Trachea is midline. Cardiovascular: Heart rate and rhythm are regular. Normal sinus rhythm on the monitor. Respiratory: Lung sounds have wheezes in the upper lobes and diminished in the bases with some rales noted to the left base. No work of breathing is noted. Abdomen: Soft, flat. Nontender. Bowel sounds are audible. Integumentary: Skin is warm and dry, scaly, with multiple areas of ecchymosis and skin tears noted particularly to the extremities. Neurologic: He is drowsy and lethargic but arousable and appropriate. Able to move all extremities in the bed independently. LABORATORY AND X-RAY: Today his white count is 14, hemoglobin 11.3, platelet count 361,000. On 5 L nasal cannula this morning his pH was 7.52, pCO2 67, PO2 91, HCO3 46.4. Creatinine is 0.8. Estimated GFR greater than 60. Immunoglobulin showed IgA of 334, IgG of 662. Chest x-ray today shows interval improvement with infiltrates slightly less pronounced than the current exam. ASSESSMENT AND PLAN: Mr. Mai is being treated for pneumonia which seems to be improving, per chest x-ray today. He is receiving Levaquin which we will continue. The plan is for him to have a week of Levaquin by mouth at home once he is discharged and then we will plan to see him in the office in 1 week to repeat his chest x-ray. A prescription is on the chart. He has a mildly low IgG level of 662, which does not merit a replacement. These plans have been discussed with and recommended by Dr. Arevalo. COMORBIDITIES: For Mr. Mai include that he is elderly with COPD, peripheral vascular disease, coronary artery disease, and chronic pancreatitis. Dictated by STACI Mims for Nicholas Arevalo MD cc: MD Luis A Bhardwaj MD MTDD
--- NOTE | 2019-02-28 15:56 | CONSULTATION ---
DATE OF CONSULTATION: 02/28/2019 HISTORY OF PRESENT ILLNESS: Mr. Mai is 73 years old and he was admitted with COPD exacerbation, right lower lobe pneumonia, hypoxia, hypercapnia. He has past medical history of ischemic heart disease and peripheral vascular disease. I have been consulted because of encephalopathy. Review of nursing notes: It sounds like he has restless agitation in the night, some violent threats and verbally abusive language. I do not see record of unresponsiveness, altered consciousness or altered awareness, focal neurologic finding. Mr. Mai reports no history of stroke, seizure, serious head injury, other neurologic event. He reports being sleepy and sometimes having trouble collecting his thoughts in recent days. He believes he does not recall the events of the initial portion of this hospitalization completely. He does not recall having memory gap at any time in the past. He stopped using ethanol about 5 years ago. He denies illicit drug use. The hospital chart current medication list shows a few things that might have MANAGER HEART FAILURE sedative affect including hydrocodone averaging a few doses daily, gabapentin 400 mg daily, haloperidol 5 mg 3 doses in the last 36 hours, zolpidem 10 mg at bedtime for the last 2 nights, lorazepam 0.5 mg once about 10 hours ago. I do not see a brain imaging report in this hospital computer system. PHYSICAL EXAMINATION: On exam, Mr. Mai is awake, alert, attentive. He identified the hospital by name correctly. He missed the day of the month by just 1 day and otherwise was completely oriented. He could not name the President. Remote memory is good. He did well on bedside language testing. Head and neck are unremarkable. There is no meningismus. He has full visual bowen tested by confrontational finger counting. Extraocular movements are full. Facial motility is a little bit diminished bilaterally, but symmetric. Tongue is midline. He has good power in the arms and legs. He has prominent stocking pattern of sensory loss to all modalities but relatively spared proprioception at the great toe bilaterally. He has good pinprick appreciation over the hands. I did not test his gait. Reflexes are 1+ at the wrists and absent at the ankles bilaterally. Plantar response is silent bilaterally. He has chronic ischemic changes over the feet. IMPRESSION: 1. Admission with primarily pulmonary problems which have been addressed and are improved. 2. Chronic peripheral vascular problems. 3. Clinical evidence of peripheral neuropathy, which is also chronic and likely not contributing to his behavior. 4. Reported agitated confusion and abusive behavior, mostly in the night. I believe he has had some benefit with haloperidol. I suspect he has a baseline cognitive impairment syndrome which may be mild at baseline, exacerbated during hospitalization, particularly at night. I would continue haloperidol as needed. Quetiapine could be added as a scheduled dose each night. He seems appropriate now and if he can be discharged, we might consider cholinesterase inhibitor trial electively as an outpatient. I do not think brain imaging will traveler changer right away, but brain MRI would be reasonable at some point. If he deteriorates while hospitalized and we need to do something acutely, CT will be quicker and will be available over the weekend. Thanks for asking Neurology to see Mr. Mai. cc: MD Luis A Callahan III, MD MTDD
[2019-02-28] MEDS: LOVENOX SUBQ SCH (16:51)
[2019-02-28] MEDS ORDERED: SEROQUEL PO SCH (21:00)
[2019-02-28] MEDS: NORCO-5 PO PRN (23:58)
[2019-03-01] MEDS: HALDOL IV PRN (00:03)
[2019-03-01] MEDS: DUONEB (A & A) INH SCH ×6 (03:30→23:00)
[2019-03-01 04:00] LABS: ALLEN TEST YES; BE 25.6 mmoll (-3.0-3.0); BLOOD TYPE ARTERIAL; HCO3-(ACT) 44.9 mmoll (20.0-26.0); METHB 1.5 % (0.0-1.5); O2(CT) 15.8 mL/dL (15.0-23.0); O2HB 95.9 % (95.0-99.0); PO2(98.6) 99 mmHg (60-100); SAMPLE BLOOD; SAO2 98.9 % (95.0-100.0); THB 11.6 g/dL (11.5-17.4); pH(98.6) 7.51 (7.35-7.45)
[2019-03-01 04:01] LABS: MODALITY CANNULA; PCO2(98.6) 66 mmHg (35-45)
[2019-03-01] MEDS: PRILOSEC PO SCH (06:11)
[2019-03-01 06:48] LABS: HEMATOCRIT 36.7 % (42.0-52.0); HEMOGLOBIN 11.4 g/dL (14.0-18.0); IMM GRAN# 0.03 X1000 (0.0-0.04); IMM GRAN% 0.2 % (0.0-0.5); LYMPH# 0.41 X1000 (1.2-3.4); MCH 28.1 PG (27-31); MCHC 31.1 g/dL (33-37); MCV 90.4 FL (81-99); MONO# 0.36 X1000 (0.11-0.59); MONO% 2.7 % (1.7-9.3); MPV 8.7 FL (7.4-10.4); NEUT# 12.71 X1000 (1.4-6.5); NEUT% 94.1 % (42.2-75.2); PLT 400 X1000 (130-400); RBC 4.06 XMIL (4.7-6.1); RDW 13.8 % (11.5-14.5); WBC 13.51 X1000 (4.8-10.8)
[2019-03-01 07:14] LABS: AGAP 8; ALB/GLOB RATIO 1.2; ALKALINE PHOSPHATASE 56 U/L (32-122); BUN 34 mg/dL (8-22); CALCIUM 8.7 mg/dL (8.8-10.2); CHLORIDE 87 mmol/L (98-107); COSMO 285; CREATININE 0.8 mg/dL (0.7-1.2); ESTIMATED GFR > 60; GLUCOSE 137 mg/dL (70-104); GOT 30 U/L (10-34); GPT 16 U/L (10-44); SODIUM 138 mmol/L (136-145); TCO2 43 mmol/L (25-35); TOTAL BILIRUBIN 0.35 mg/dL (0.20-1.00); TOTAL PROTEIN 5.6 g/dL (6.3-8.3)
[2019-03-01 07:15] LABS: BANDS 2 % (0-1); LYMPHS 4 % (21-51); SEGS 94 % (42-75)
[2019-03-01] MEDS: SOLU-MEDROL IV SCH (08:12)
[2019-03-01] MEDS: LASIX IV SCH (08:13)
[2019-03-01] MEDS: ASPIRIN PO SCH (08:13)
[2019-03-01] MEDS: NEURONTIN PO SCH (08:13)
[2019-03-01] MEDS: LEVAQUIN 500 MG/D5W 500 MG/100 ML IVPB IV SCH (08:13)
[2019-03-01] MEDS: NORCO-5 PO PRN ×2 (08:13→21:23)
[2019-03-01] MEDS: LIPITOR PO SCH (08:13)
[2019-03-01] MEDS: MIRALAX PO SCH ×2 (08:14→21:23)
[2019-03-01] MEDS: NICODERM PATCH TD SCH (08:14)
[2019-03-01] MEDS: DULCOLAX PR SCH ×2 (08:15→21:23)
[2019-03-01] MEDS: SYMBICORT 80/4.5 MICROGM INHALER INH SCH ×2 (08:45→19:11)
[2019-03-01] MEDS: SANTYL OINT TOP SCH (10:58)
[2019-03-01] MEDS: LOVENOX SUBQ SCH (16:03)
--- NOTE | 2019-03-01 17:42 | PROGRESS NOTE ---
DATE: 03/01/2019 SUBJECTIVE: The patient is resting comfortably in bed. He wore his BiPAP for a small amount of time last night. OBJECTIVE: Vital Signs: Temperature 97 degrees, blood pressure 103/53, heart rate 94, respirations 20, O2 saturation is 94% on BiPAP. Intake 1 L, output 1.2 L. General: This is a chronically ill-appearing, elderly male, lying in bed in no acute distress. Heart: S1, S2 normal. Lungs: Equal air entry bilaterally. No wheezing. No rales. No rhonchi. Abdomen: Positive bowel sounds. Soft, nontender, nondistended. Extremities: No edema. No cyanosis. Neurologic: The patient is alert and oriented x3. LABORATORY DATA: White blood cell count 13, hemoglobin 11, hematocrit 36, platelets 400,000. Sodium 138, potassium 4, chloride 87, CO2 of 43, BUN 34, creatinine 0.8, glucose 137, calcium 8.7. AST 13, ALT 16, alkaline phosphatase 56. ASSESSMENT AND PLAN: 1. Acute on chronic hypoxemic and hypercapnic respiratory failure. Multifactorial. Continue on BiPAP at night. 2. Right lower lobe pneumonia. Continue on Levaquin. 3. Chronic obstructive pulmonary disease exacerbation. Improved. 4. Tobacco dependence. The patient has been counseled about smoking cessation. 5. Coronary artery disease, status post coronary artery bypass graft. Continue on the current cardiac medications. 6. Pulmonary edema. Improved. 7. Cognitive impairment syndrome. This appears to be worse at night. We will increase the Seroquel dosage to 25 mg at bedtime. 8. Disposition. Hopefully, the patient will be stable for discharge on Sunday. cc: MD Luis A Ruiz MD [facility]
[2019-03-01] MEDS ORDERED: SEROQUEL PO SCH (21:00)
[2019-03-02] MEDS: DUONEB (A & A) INH SCH ×6 (03:50→23:30)
[2019-03-02 04:16] LABS: ALLEN TEST YES; BE 22.6 mmoll (-3.0-3.0); BLOOD TYPE ARTERIAL; HCO3-(ACT) 42.5 mmoll (20.0-26.0); METHB 2.1 % (0.0-1.5); O2(CT) 14.7 mL/dL (15.0-23.0); PO2(98.6) 112 mmHg (60-100); SAMPLE BLOOD; SAO2 98.7 % (95.0-100.0); THB 10.9 g/dL (11.5-17.4)
[2019-03-02 04:17] LABS: MODALITY CANNULA; PCO2(98.6) 63 mmHg (35-45)
[2019-03-02] MEDS: NORCO-5 PO PRN ×3 (05:40→21:05)
[2019-03-02] MEDS: PRILOSEC PO SCH ×2 (05:40→06:11)
[2019-03-02 06:24] LABS: BASO# 0.01 X1000 (0.0-0.2); BASO% 0.1 % (0.0-0.8); EOS# 0.04 X1000 (0.0-0.7); EOS% 0.4 % (0.0-10.0); HEMATOCRIT 36.7 % (42.0-52.0); HEMOGLOBIN 11.4 g/dL (14.0-18.0); IMM GRAN# 0.07 X1000 (0.0-0.04); IMM GRAN% 0.7 % (0.0-0.5); LYMPH# 1.01 X1000 (1.2-3.4); LYMPH% 9.8 % (20.5-51.1); MCHC 31.1 g/dL (33-37); MCV 90.2 FL (81-99); MONO# 0.59 X1000 (0.11-0.59); MONO% 5.7 % (1.7-9.3); NEUT# 8.63 X1000 (1.4-6.5); NEUT% 83.3 % (42.2-75.2); PLT 412 X1000 (130-400); RBC 4.07 XMIL (4.7-6.1); RDW 13.7 % (11.5-14.5); WBC 10.35 X1000 (4.8-10.8)
[2019-03-02 06:52] LABS: ESTIMATED GFR > 60
[2019-03-02 06:53] LABS: AGAP 5; BUN 33 mg/dL (8-22); CHLORIDE 89 mmol/L (98-107); COSMO 284; GLUCOSE 87 mg/dL (70-104); POTASSIUM 3.8 mmol/L (3.5-5.1); SODIUM 139 mmol/L (136-145); TCO2 45 mmol/L (25-35)
[2019-03-02 06:54] LABS: CALCIUM 8.6 mg/dL (8.8-10.2); CREATININE 0.8 mg/dL (0.7-1.2)
[2019-03-02] MEDS: SYMBICORT 80/4.5 MICROGM INHALER INH SCH ×2 (07:44→19:18)
[2019-03-02] MEDS ORDERED: SOLU-MEDROL IV SCH (08:00)
[2019-03-02] MEDS ORDERED: VITAMIN D PO SCH (09:00)
[2019-03-02] MEDS: NICODERM PATCH TD SCH (09:44)
[2019-03-02] MEDS: LEVAQUIN 500 MG/D5W 500 MG/100 ML IVPB IV SCH (09:44)
[2019-03-02] MEDS: MIRALAX PO SCH ×2 (09:44→21:05)
[2019-03-02] MEDS: NEURONTIN PO SCH (09:45)
[2019-03-02] MEDS: DULCOLAX PR SCH ×2 (09:45→21:06)
[2019-03-02] MEDS: LIPITOR PO SCH (09:45)
[2019-03-02] MEDS: LASIX IV SCH (09:45)
[2019-03-02] MEDS: ASPIRIN PO SCH (09:45)
[2019-03-02] MEDS: HALDOL IV PRN ×2 (10:11→21:05)
[2019-03-02] MEDS: SANTYL OINT TOP SCH (10:35)
[2019-03-02] MEDS ORDERED: MEDROL DOSEPAK PO SCH (12:15)
--- NOTE | 2019-03-02 17:42 | PROGRESS NOTE ---
DATE: 03/02/2019 SUBJECTIVE: The patient is resting comfortably in bed. No acute events noted overnight. OBJECTIVE: Vital Signs: Temperature 97.6 degrees, blood pressure 98/49, heart rate 93, respirations 16, O2 saturation is 94% on 5 L nasal cannula. Intake: 600. Output: 2.1 L. General: This is a chronically ill-appearing elderly male, lying in bed in no acute distress. Heart: S1, S2 normal, tachycardic. Lungs: Diminished breath sounds bilaterally. No wheezing, no rales. Abdomen: Positive bowel sounds. Soft, nontender, nondistended. Extremities: No edema, no cyanosis. Neurologic: The patient is alert and oriented x3. LABORATORY DATA: Sodium 139, potassium 3.8, chloride 89, CO2 of 45, BUN 33, creatinine 0.8, glucose 87. ABG: PH of 7.5, pCO2 of 63, PO2 of 112, bicarbonate 42. White blood cell count 10, hemoglobin 11, hematocrit 36 platelets 412. ASSESSMENT AND PLAN: 1. Acute on chronic hypoxemic and hypercapnic respiratory failure. Multifactorial. Continue to use Trilogy. 2. Right lower lobe pneumonia. Continue on Levaquin. 3. Chronic obstructive pulmonary disease exacerbation. Improved. 4. Coronary artery disease status post coronary artery bypass graft. Continue on the current cardiac medications. 5. Pulmonary edema. Improved. 6. Cognitive impairment. The patient is currently on Seroquel. DISPOSITION: We will plan to discharge the patient home tomorrow with home health services. cc: MD Luis A Ruiz MD MTDD
[2019-03-02] MEDS: LOVENOX SUBQ SCH (17:48)
[2019-03-02] MEDS: MEDROL PO SCH ×2 (17:49→21:22)
[2019-03-02] MEDS ORDERED: SEROQUEL PO SCH (21:00)
[2019-03-03] MEDS: DUONEB (A & A) INH SCH ×2 (03:15→07:48)
[2019-03-03 04:30] LABS: ALLEN TEST YES; BLOOD TYPE ARTERIAL; HCO3-(ACT) 36.6 mmoll (20.0-26.0); METHB 1.1 % (0.0-1.5); O2(CT) 21.1 mL/dL (15.0-23.0); O2HB 96.6 % (95.0-99.0); PO2(98.6) 124 mmHg (60-100); SAMPLE BLOOD; SAO2 99.2 % (95.0-100.0); THB 15.4 g/dL (11.5-17.4); pH(98.6) 7.45 (7.35-7.45)
[2019-03-03 04:31] LABS: MODALITY CANNULA
[2019-03-03 04:40] LABS: PCO2(98.6) 61 mmHg (35-45)
--- NOTE | 2019-03-03 05:18 | PROGRESS NOTE ---
DATE: 02/28/2019 SUBJECTIVE: The patient had a rough night last night. He became very confused and started hallucinating, and was abusive toward staff. He required Ativan overnight for agitation as well as Haldol. OBJECTIVE: Vital Signs: Temperature 97.7 degrees, blood pressure 100/42, heart rate 102, respirations 24, O2 saturation 95% on 4 L nasal cannula. General: This is a chronically ill- appearing male, lying in bed in no acute distress. Heart: S1, S2. Tachycardic. Lungs: Equal air entry bilaterally. Mild rhonchi bilaterally. Abdomen: Positive bowel sounds. Soft, nontender, nondistended. Extremities: No edema, no cyanosis. Neurologic: The patient is oriented to person and place. LABS: White blood cell count 14, hemoglobin 11, hematocrit 36, platelets 361,000. Sodium 139, potassium 3.2, chloride 84, CO2 45, BUN 33, creatinine 0.8, glucose 165. ASSESSMENT AND PLAN: 1. Acute on chronic hypoxemic and hypercapnic respiratory failure. Continue to treat the underlying issues. 2. Pneumonia. Continue on Levaquin. Dr. Arevalo is following. 3. Delirium, with suspected cognitive dysfunction. The patient has been seen by the neurologist. We will start the patient on Seroquel tonight and see how he responds. 4. Chronic obstructive pulmonary disease. Continue with bronchodilator therapy and BiPAP at night. 5. Coronary artery disease, status post coronary artery bypass graft. Continue on the current cardiac medications. 6. Tobacco dependence. The patient has been counseled about smoking cessation. 7. Pulmonary edema. Improved. 8. Anemia. Stable. 9. Deep vein thrombosis prophylaxis. Continue on Lovenox. 10. Disposition. The patient will be discharged home with home health once he is medically stable. cc: MD Luis A Ruiz MD
[2019-03-03 06:16] LABS: HEMATOCRIT 36.8 % (42.0-52.0); HEMOGLOBIN 11.7 g/dL (14.0-18.0); MCH 28.6 PG (27-31); MCHC 31.8 g/dL (33-37); MPV 9.1 FL (7.4-10.4); RBC 4.09 XMIL (4.7-6.1); RDW 13.9 % (11.5-14.5); WBC 11.19 X1000 (4.8-10.8)
[2019-03-03] MEDS: PRILOSEC PO SCH (06:27)
[2019-03-03 06:47] LABS: AGAP 12; BUN 33 mg/dL (8-22); CALCIUM 8.9 mg/dL (8.8-10.2); CHLORIDE 88 mmol/L (98-107); COSMO 285; CREATININE 0.8 mg/dL (0.7-1.2); ESTIMATED GFR > 60; GLUCOSE 142 mg/dL (70-104); POTASSIUM 4.2 mmol/L (3.5-5.1); SODIUM 138 mmol/L (136-145); TCO2 38 mmol/L (25-35)
[2019-03-03] MEDS: SYMBICORT 80/4.5 MICROGM INHALER INH SCH (07:48)
--- NOTE | 2019-03-03 07:53 | Diag Imaging Result Doc PS360 ---
CHEST-1 VIEW - 03/03/2019 INDICATION: dyspnea COMPARISON: 02/28/2019 FINDINGS: Stable COPD changes. Stable diffuse hazy infiltrates bilaterally suggesting mild pulmonary edema. No pleural effusions. Heart size is top normal. IMPRESSION: COPD. Interstitial pulmonary edema. No change from prior. Electronically signed by Davon Hernandez 03/03/2019 7:51 AM
[2019-03-03] MEDS ORDERED: LEVAQUIN PO ONE (07:59)
[2019-03-03] MEDS: NORCO-5 PO PRN (08:03)
[2019-03-03] MEDS: NEURONTIN PO SCH (08:04)
[2019-03-03] MEDS: MEDROL PO SCH (08:04)
[2019-03-03] MEDS: LIPITOR PO SCH (08:04)
[2019-03-03] MEDS: DULCOLAX PR SCH (08:04)
[2019-03-03] MEDS: MIRALAX PO SCH (08:04)
[2019-03-03] MEDS: ASPIRIN PO SCH (08:04)
[2019-03-03] MEDS: HALDOL IV PRN (08:07)
[2019-03-03] MEDS: NICODERM PATCH TD SCH (08:24)
[2019-03-03 09:21] VITALS: BP 110/52
--- NOTE | 2019-03-06 06:52 | DISCHARGE SUMMARY ---
ADMISSION DATE: 02/16/2019 DISCHARGE DATE: 03/03/2019 FINAL DISCHARGE DIAGNOSES: 1. Acute on chronic hypoxemic and hypercapnic respiratory failure. 2. Right lower lobe pneumonia. 3. Chronic obstructive pulmonary disease exacerbation. 4. Pulmonary edema. 5. Coronary artery disease status post coronary artery bypass graft. 6. Cognitive impairment from arterial disease. 7. Tobacco dependence CONSULTATIONS: 1. Pulmonary consultation with Dr. Hanks. 2. ID consultation with Dr. Arevalo. HOSPITAL COURSE: Mr. Mai is a 73-year-old male with a history of multiple medical problems who presented to the ER with shortness of breath and respiratory failure. The patient was admitted to the hospitalist service. A chest x-ray was done on admission that revealed infiltrates in both lungs. The blood and sputum cultures were obtained. The patient was started on broad-spectrum antibiotics. The patient was noted to have pulmonary edema on chest x-ray so diuretic therapy was also initiated. Pulmonary was consulted for further assistance with management. The patient was also started on IV steroids for the COPD exacerbation in addition to bronchodilator therapy. The patient was noted to persistently be retaining CO2, and was placed on BiPAP every evening. It was noted that the patient was very confused mainly at night so Neurology was consulted. It was thought that the patient might have some mild cognitive dysfunction. It was recommended that Seroquel be initiated at bedtime. With the initiation of Seroquel, the patient's mood improved. Infectious Disease was consulted for antibiotic recommendations, and it was recommended that the patient be transitioned to oral Levaquin upon discharge. The stallion manager made arrangements, and the patient had a trilogy machine delivered to his hospital room, which he used during his hospital stay. The patient continued to improve clinically, and arrangements were made for the patient to be discharged home with home health services. The patient was cleared for discharge home on 03/03/2019. DISCHARGE MEDICATIONS: 1. Levaquin 500 mg p.o. daily x7 days. 2. Symbicort 2 puffs inhaled twice a day. 3. Vitamin D2 02614 units oral every 7 days. 4. Lasix 20 mg p.o. daily. 5. NicoDerm patch 21 mg transdermal daily. 6. Seroquel 50 mg oral at bedtime. 7. DuoNeb 3 mL inhaled every 4 hours p.r.n. 8. Albuterol inhaler 2 puffs inhaled every 6 hours p.r.n. for shortness of breath. 9. Lipitor 40 mg p.o. daily. 10. [place] 10/325 one tab oral every 6 hours p.r.n. for pain. 11. Gabapentin 400 mg oral daily. DISCHARGE DIET: Low-sodium diet. ACTIVITY: As tolerated. FOLLOWUP INSTRUCTIONS: The patient will need to follow up with Dr. Hanks as scheduled by his clinic. The patient will also need to follow up with Dr. Nicholas Arevalo on 03/10/2019 at 8:30 in the morning. The patient will need to follow up with Dr. Calzada in 1 to 2 weeks. cc: MD Dr. Elsi Ruiz [facility]
== END 2019-03-03 10:50 | disposition home health service (06) | DRG 189 ==
LOC: P.ED 11:47 → P.ICU 20:30 → SUATTDRO 20:30 → 2N 02-23 14:18
PROVIDERS: ATTEND Internal Medicine